=== PATIENT | female | born 1950 | race Caucasian/White ===

== ENCOUNTER → 2016-07-02 | Outpatient (CLI) | payer BC ==
[2016-07-02 09:11] LABS: ALT 33 U/L (9-52); AST 24 U/L (14-36); Alkaline Phosphatase 64 U/L (38-126); Anion Gap 8 mmol/L; Blood Urea Nitrogen 17 mg/dL (7-17); Calcium 9.6 mg/dL (8.4-10.2); Carbon Dioxide 28 mmol/L (22-30); Chloride 104 mmol/L (98-107); Cholesterol 209 mg/dL (<200); Glucose 92 mg/dL (74-99); HDL Cholesterol 75 mg/dL (40-60); Non-African American GFR(MDRD) >60 (>60 ml/min/1.73 sqM); Potassium 4.3 mmol/L (3.5-5.1); Sodium 140 mmol/L (137-145); Total Bilirubin 0.7 mg/dL (0.2-1.3); Total Protein 7.1 g/dL (6.3-8.2); Triglycerides 178 mg/dL (<150)
[2016-07-02 14:03] LABS: Hemoglobin A1C 5.8 % (4.2-6.1)
== END | disposition home or self-care (01) ==
LOC: LABWHC1 08:08
PROVIDERS: ATTEND Internal Medicine Endocrinology, Diabetes & Metabolism
DX: E78.5 Hyperlipidemia, unspecified (principal); E55.9 Vitamin D deficiency, unspecified; E03.9 Hypothyroidism, unspecified
CPT/HCPCS: 36415; 80053; 80061; 82306; 83036; 84439; 84443

== ENCOUNTER → 2018-02-14 | Outpatient (CLI) | payer BC ==
[2018-02-14 11:07] LABS: Basophils # (A) 0.1 k/uL (0-0.2); Basophils % (A) 1 %; Eosinophils # (A) 0.3 k/uL (0-0.7); Eosinophils % (A) 4 %; Lymphocytes # (A) 1.4 k/uL (1.0-4.8); Lymphocytes % (A) 22 %; MCH 30.1 pg (25.0-35.0); MCHC 32.7 g/dL (31.0-37.0); MCV 92.2 fL (80.0-100.0); Monocytes # (A) 0.4 k/uL (0-1.0); Monocytes % (A) 6 %; Neutrophils # (A) 4.3 k/uL (1.3-7.7); Neutrophils % (A) 66 %; Platelet Count 202 k/uL (150-450); RBC 5.32 m/uL (3.80-5.40); RDW 13.8 % (11.5-15.5); WBC 6.5 k/uL (3.8-10.6)
[2018-02-14 16:59] LABS: Albumin 4.5 g/dL (3.80-4.90); Albumin/Globulin Ratio 2.65 (1.20-2.10); Anion Gap 8.1 mmol/L (4.00-12.00); Calcium 9.4 mg/dL (8.7-10.3); Carbon Dioxide 26.9 mmol/L (21.6-31.8); Globulin 1.7 g/dL (2.1-3.7); LDL Cholesterol,Calculated 129.4 mg/dL (0.0-131.0); Potassium 4.2 mmol/L (3.5-5.5); Total Bilirubin 0.4 mg/dL (0.2-1.2); Total Protein 6.2 g/dL (6.2-8.2); VLDL Calculation 28.6 mg/dL (5.00-40.00)
[2018-02-14 17:06] LABS: T4, Free (Free Thyroxine) 1.2 ng/dL (0.80-1.80)
[2018-02-14 19:48] LABS: Hemoglobin A1C 5.9 % (4.0-6.0)
== END | disposition home or self-care (01) ==
LOC: LABWHC1 10:17
PROVIDERS: ATTEND Internal Medicine Endocrinology, Diabetes & Metabolism
DX: E78.5 Hyperlipidemia, unspecified (principal); E55.9 Vitamin D deficiency, unspecified; E03.9 Hypothyroidism, unspecified; N95.1 Menopausal and female climacteric states; M89.9 Disorder of bone, unspecified; I10 Essential (primary) hypertension
CPT/HCPCS: 36415; 80053; 80061; 82306; 83036; 84439; 84443; 85025

== ENCOUNTER 2023-04-10 08:00 | Day surgery (SDC) | payer BC ==
[2023-04-04 14:43] VITALS: BMI 26.2
[~2023-04-10 08:00] MED LIST: ALPRAZolam 0.25 MG TAB PO PRN; ALPRAZolam 0.5 MG TAB PO PRN; ASPIRIN 325 MG TAB PO STA; HEPARIN SODIUM,PORCINE (1 ML) 2,500 UNIT in SODIUM CHLORIDE 0.9% 250 ML IRRIGATION PRN; HEPARIN SODIUM,PORCINE 10,000 UNIT in SODIUM CHLORIDE 0.9% 1,000 ML IRRIGATION PRN; NITROGLYCERIN SL TABS 0.4 MG TAB SUBLINGUAL PRN
[2023-04-10] MEDS: SODIUM CHLORIDE 0.9% 1,000 ML in EMPTY BAG 1 BAG IV SCH (08:22)
[2023-04-10 08:39] VITALS: RESP 18; TEMP 97.7
[2023-04-10] MEDS ORDERED: fentaNYL (PF) 50 MCG/ML 2 ML AMP ONE (09:04)
[2023-04-10] MEDS: IV FLUID CONTINUATION 1,000 ML IV ONE (09:12)
[2023-04-10] MEDS: BENZOCAINE SPRAY 1 CAN MUCOUS MEM ONE (09:12)
[2023-04-10] MEDS: MIDAZOLAM 2 MG/2 ML VIAL IVP ONE ×4 (09:14→10:42)
[2023-04-10] MEDS: fentaNYL (PF) 50 MCG/ML 2 ML AMP IVP ONE (09:14)
--- NOTE | 2023-04-10 10:03 | P.TEE ---
Date of Procedure: 04/10/23 Description of Procedure(s): Procedure performed: 1. Transesophageal Echocardiogram with color flow doppler, pulsed wave doppler and continuous wave doppler 2. Moderate conscious sedation. Sedation time 18 mins. Indications: Concerns of LVOT obstruction, (dynamic) and mitral regurgitation evaluation. Consent: I have discussed the risks, benefits and alternative therapies for the above-mentioned procedure. The patient has indicated understanding and acceptance of the risks of the procedure. Signed consent was obtained and was placed in the paper chart. Procedural Steps: Timeout was performed in usual fashion. Patient's heart rate, blood pressure, oxygen saturation and ECG were monitored. Benzocaine was sprayed liberally in the back of the throat. Bite block was placed between the jaw. [1] mg of Versed and [50] mcg of Fentanyl were administered intravenously. After achieving appropriate moderate conscious sedation, CHAPINCITO probe was advanced without difficulty and without any immediate complications to the esophagus. CHAPINCITO study was performed with color flow doppler, pulsed wave doppler and continuous wave doppler. The probe was then removed. Patient tolerated the procedure well. Patient was transferred to the post procedure area in stable and satisfactory condition. Throughout the procedure patient's heart rate, blood pressure, oxygen saturation and ECG were monitored. CHAPINCITO procedure was limited because patient was uncomfortable during the procedure and was biting on the CHAPINCITO probe. Total sedation time 18 mins. Complications: none FINDINGS Left Atrium: Normal Left atrial size. No evidence of mass or thrombus seen Left Atrial Appendage: No evidence of thrombus or mass seen in EMEKA Inter atrial septum: Intact inter-atrial septum with no evidence of atrial septal defect or patent foramen ovale by color Doppler. Left Ventricle: Normal global LV size and systolic function. Moderate to severe concentric LVH Right Atrium: Normal overall RV size Right Ventricle: Normal global RV size and systolic function Aortic Valve: Trileaflet, mild calcific degeneration of aortic valve with no evidence of stenosis or regurgitation. Moderately increased LVOT gradients. Mitral Valve: Mild cordal systolic anterior motion of anterior mitral leaflet. Moderate posterior mitral leaflet calcific degeneration with restriction. Posteriorly directed eccentric mitral regurgitation moderate to severe. Pisa could not be obtained because of contaminated Doppler signal from increased LVOT velocities. Pulmonic Valve: Not well visualized. Tricuspid Valve: Structurally normal. Ascending aorta, Aortic root and Aortic arch: Normal size aortic root and ascending aorta. Ascending aorta measured at 3.7 cm. mild intimal thickening. No evidence of large atheroma or bulky calcification Small pericardial effusion in transverse sinus CONCLUSION: Moderately increased LVOT gradients Mild caudal systolic anterior motion of mitral leaflet. Calcific degeneration of posterior mitral leaflet with restriction causing moderate to severe eccentric mitral regurgitation, posteriorly directed. Moderate to severe concentric LVH Small transverse sinus pericardial effusion May consider LVOT gradient provocation study with valsalva and low dose dobutamine. Karson Taylor MD, RPVI, FACC Thank you for allowing [facility] to participate in this patient's care. Feel free to reach out in case of any followup questions.
[2023-04-10] MEDS ORDERED: LIDOCAINE 1% INJ 10MG/ML (20 ML MDV) ONE (10:04)
[2023-04-10] MEDS ORDERED: HEPARIN SODIUM 1,000 UN/ML (10ML VL) ONE (10:04)
[2023-04-10] MEDS ORDERED: VERAPAMIL 2.5 MG/ML 2 ML AMP ONE (10:04)
[2023-04-10] MEDS: VERAPAMIL SYRINGE (5 MG/10 ML) INTRAARTER ONE ×2 (10:35→10:55)
[2023-04-10] MEDS: LIDOCAINE 1% INJ 10MG/ML (20 ML MDV) SQ ONE (10:42)
[2023-04-10] MEDS: HEPARIN SODIUM 1,000 UN/ML (10ML VL) IVP ONE (10:55)
[2023-04-10 10:57] LABS: O2 Sat Blood Gas 70.3 %
[2023-04-10 10:59] LABS: O2 Sat Blood Gas 70.3 %
[2023-04-10 11:02] LABS: O2 Sat Blood Gas 91.5 %
[2023-04-10] MEDS: IOPAMIDOL-370 100ML BTL INJ ONE ×2 (11:12→11:14)
[2023-04-10] MEDS ORDERED: SODIUM CHLORIDE 0.9% 1,000 ML IV SCH (11:30)
--- NOTE | 2023-04-10 13:07 | CC ---
CARDIAC CATHETERIZATION REPORT PROCEDURES PERFORMED: Right and left heart catheterization and coronary angiography. PERFORMED BY: Dr. Ge Herrera. ANESTHESIA: Moderate conscious sedation time was 48 minutes. Patient was administered Versed. Oxygen saturation, hemodynamics, and EKG were monitored closely. CLINICAL INFORMATION: Mrs. Nicolle Richards is a 72-year-old lady with a known history of hypertension, hyperlipidemia, mitral regurgitation, moderate degree. She has been following with me for several years and recently she is having more shortness of breath and fatigue and on the echo there is moderate regurgitation, slightly worse than before, but there is also what seems to be hypertrophic cardiomyopathy with outflow tract gradient and a chordal ATIF. She has calcified posterior mitral leaflet. I performed a Lexiscan stress test, which revealed inferolateral reversible defect with preserved systolic function. There was no gradient across the aortic valve. Given this, she was advised cardiac cath and transesophageal echo. Transesophageal echo revealed that there was moderate LVOT obstruction. On the transthoracic echo, the gradient was nearly 45 mmHg. There was calcification of posterior mitral leaflet with [id number] mitral regurgitation, but no prolapse. There was also no PFO or thrombus. I advised right and left heart catheterization. The patient already had a right brachial venous access. PROCEDURE NOTE: Under strict aseptic precautions and local anesthesia, a 6-Kazakh introducer was placed in the right radial artery. I used a 6-Kazakh introducer with a micropuncture wire and gained access through the venous cannula that was already in the brachial vein. Right heart catheterization was performed with a 6-Kazakh balloon tipped catheter. Hemodynamics and saturations were obtained. I did a thermodilution cardiac output. I then performed coronary angiography and also checked LV pressures. Using end hole right Rita catheter, I checked pressures at the LV apex and LV outflow. I also performed coronary angiography with the same right catheter and then used a JL3.5 catheter for the left coronary system. The sheath was taken out, and TR band applied as per protocol with saturation the fingers of the right hand of 95%. Brachial sheath will be removed in the extended stay unit. Patient tolerated the procedure well without complications. CARDIAC CATHETERIZATION FINDINGS: The right atrial pressure was 4 mmHg. Right ventricular pressure was 34/4. Pulmonary artery pressure was 34/9 with mean of 13 and a wedge pressure was 10 mmHg. The left ventricular end-diastolic pressure was about 12-13 mmHg without any gradient across aortic valve. Between the LV apex and LV outflow tract, there is a 35 mm gradient recorded using a Coker catheter. The femoral arterial saturation was about 92% and pulmonary artery saturation was 70%. The thermodilution cardiac output and Zack cardiac output were both about 5 L. There is no shunt. CORONARY ANGIOGRAPHY FINDINGS: Right Coronary Artery: Nondominant vessel, proximal 80% stenosis, gives off a conus branch and small branches distally. No other significant disease. Proximal 80% stenosis. Nondominant RCA. Left Main Coronary Artery: No significant disease. Bifurcates into LAD and circumflex. Left main is short. Left Anterior Descending Coronary Artery: Good caliber vessel extends along the antral wall, gives off 2 small septal branches, then there is a proximal narrowing of about 80% or so after which the caliber improves, and the vessel continues and gives off septal and diagonal branches, runs all the way to the apex and curves over the apex to supply the inferoapical portion of left ventricle. LAD is therefore large, has a proximal 85% stenosis. Left Posterior Circumflex Coronary Artery: This is a dominant vessel, proximal 80% stenosis, gives off a small first obtuse marginal. No significant disease. Distally bifurcates into PDA and PLV, both of which supply large amount of myocardium. No significant disease in the distal branches of circumflex. Circumflex proximally has therefore 85% stenosis and a dominant vessel. Left ventriculogram was not performed. FINAL IMPRESSION: This patient has a left dominant system, 85% proximal circumflex and proximal LAD, also has a nondominant RCA about 80% to 90% stenosis. The gradient between the LV apex and outflow tract is 35 mmHg. The patient does not have significant pulmonary hypertension. There is no shunt. There was no gradient across the aortic valve and LV end-diastolic pressure was 12 mmHg. RECOMMENDATIONS: The patient has complex issues. I am recommending evaluation by Cardiac surgery for possible bypass surgery and may require a mitral valve repair or at least a ring for the mitral valve. Regarding hypertrophic cardiomyopathy at this time, no surgical intervention is advised because it seems to be more of a concentric hypertrophy. However, I will await input from cardiac surgery as well. Discussed with the patient and family. She will be discharged later on today on beta blockers, antihypertensives, aspirin, and statins. MMODL / IJN: [id number] /
[2023-04-10] MEDS ORDERED: ASPIRIN 81 MG PO PRN (13:41)
--- NOTE | 2023-04-10 15:29 | P.GSCN ---
History of Present Illness Consult date: 04/10/23 Reason for Consult: CAD, mitral regurgitation Requesting physician: Sukhdev Herrera History of present illness: This is a 72 year old female who follows outpatient with Dr. Acharya for primary care and Dr. Herrera for cardiology. She has a previous medical history of hypertension, hyperlipidemia, mitral regurgitation with hypertrophic obstructive cardiomyopathy, hypothyroid and previous tobacco dependence. The has been experiencing increased shortness of breath limiting her from her usual functions. She had a stress test by Dr. Herrera which revealed inferior wall reversible defect with preserved ejection fraction. Given these findings she was recommended to undergo heart catheterization and transesophageal echocardiogram which were completed today. CHAPINCITO demonstrated moderate increased left ventricular outflow tract gradient, mild chordal ATIF, moderate to severe posteriorly directed eccentric mitral regurgitation, moderate to severe concentric left ventricular hypertrophy. Heart catheterization revealed proximal RCA stenosis 80%, proximal LAD stenosis 85%, and dominant proximal circumflex stenosis 85%. Due to these findings consultation was placed to Dr. Gonzales for surgical recommendations. Review of Systems Review of systems was completed and was negative except as noted - Cardiovascular Reports as per HPI, Reports dyspnea on exertion, Reports shortness of breath Past Medical History Past Medical History: Hyperlipidemia, Hypertension, Thyroid Disorder Additional Past Medical History / Comment(s): HAD CHANGES IN STRESS TEST SINCE LAST YEAR. RT CATARACT. Mitral regurgitation History of Any Multi-Drug Resistant Organisms: None Reported Past Surgical History: Breast Surgery, Hysterectomy Additional Past Surgical History / Comment(s): HOLE IN RT EYE REPAIRED 3 YRS AGO AT [place]. BREAST REDUCTION 2009 Past Anesthesia/Blood Transfusion Reactions: Postoperative Nausea & Vomiting (PONV) Past Psychological History: No Psychological Hx Reported Smoking Status: Former smoker Past Alcohol Use History: None Reported Past Drug Use History: None Reported - Past Family History Mother Family Medical History: No Reported History Medications and Allergies Home Medications Medication Instructions Recorded Confirmed Type Aspirin EC [Ecotrin Low Dose] 81 mg PO DAILY PRN 04/04/23 04/10/23 History Ergocalciferol [Vitamin D2 (1250 1,250 mcg PO SA 04/04/23 04/10/23 History Mcg = 81520 Iu)] Levothyroxine Sodium [Synthroid] 100 mcg PO DAILY 04/04/23 04/10/23 History Atorvastatin [Lipitor] 80 mg PO DAILY #0 tab 04/10/23 Rx Losartan [Cozaar] 50 mg PO HS #0 tab 04/10/23 Rx Metoprolol Tartrate [Lopressor] 25 mg PO BID #0 tab 04/10/23 Rx Allergies Allergy/AdvReac Type Severity Reaction Status Date / Time No Known Allergies Allergy Verified 04/10/23 08:14 Surgical - Exam Vital Signs Temp Pulse Resp BP Pulse Ox 97.7 F 88 18 127/65 96 04/10/23 08:21 04/10/23 08:21 04/10/23 08:21 04/10/23 08:21 04/10/23 08:21 CONSTITUTIONAL: Awake and alert, appears comfortable, cooperative, well- developed, well-nourished, no pain, no acute distress EYES: Pupils equal, round, reactive to light, normal ocular movement ENT: Moist mucous membranes without oral lesions present NECK: No masses, no bruits, trachea midline RESPIRATORY: Lungs sounds clear to auscultation bilaterally. Respirations even, nonlabored. Currently on room air with oxygen saturation 100%. Strong cough. No chest wall deformities. No clubbing or cyanosis present CARDIOVASCULAR: S1, S2 present, systolic murmur present. Regular rate and rhythm, sinus rhythm on telemetry. Palpable peripheral pulses bilaterally. No edema present. No calf pain or tenderness noted GASTROINTESTINAL: Abdomen soft, nontender, nondistended without masses or organomegaly noted. There is no rebound or guarding present. Active bowel sounds present 4 quadrants. GENITOURINARY: Deferred INTEGUMENTARY: Skin is warm and dry with evidence of good perfusion. NEUROLOGIC: Cranial nerves II through XII intact, normal coordination, no obvious motor or sensory deficits, speech is normal MUSKULOSKELETAL: Able to move all extremities, strength equal bilaterally, normal posture PSYCHIATRIC: Alert and oriented to person place and time, appropriate affect, intact judgment and insight Results - Imaging Additional studies: Heart catheterization and transesophageal echocardiogram films were reviewed with Dr. Gonzales Assessment and Plan Assessment: Triple-vessel coronary artery disease Increased left ventricular outflow tract gradient Mild chordal ATIF, moderate to severe posteriorly directed eccentric mitral regurgitation Moderate to severe concentric left ventricular hypertrophy Hypertension Hyperlipidemia Hypertrophic obstructive cardiomyopathy Hypothyroid Previous tobacco dependence ADDENDUM: Patient seen and examined. MR only moderate/ CAD amenable to PTCA. Discussed with patient and son. Options of MVR/CABG vs PTCA discussed at length. She would prefer PTCA at this time, understanding if remains symptomatic, might still require OHS for Mitral valve replacement. Discussed with Dr Herrera. [facility] Plan: The patient was seen and examined with Dr. Gonzales in the Extended Stay unit. Chart/diagnostics reviewed. The case was discussed between Dr. Gonzales and Dr. Herrera. Our recommendations are for percutaneous intervention to her coronary arteries, beta-blockade for hokum. After that repeat echocardiogram for reevaluation, possible mitral valve replacement down the line but likely would be high risk. This was discussed in detail between Dr. Gonzales and Dr. Herrera, as well is with the patient and her son. All questions were answered. Continue medical therapy per Dr. Herrera. May refer back to us in the future. Thank you Dr. Herrera for this consult. Please call us with any further questions. I have personally seen and examined the patient, performed the documentation and the assessment and plan as written. Number of minutes spent on the visit: 30. Jacqueline Neumann, JOSEF-C
[2023-04-10 16:13] VITALS: BP 148/70; PULSE 76
[2023-04-10] MEDS ORDERED: LOSARTAN 50 MG TAB PO SCH (21:00)
[2023-04-10] MEDS ORDERED: METOPROLOL TARTRATE 25 MG TAB PO SCH (21:00)
[2023-04-11] MEDS ORDERED: LEVOTHYROXINE 100 MCG TAB PO SCH (06:30)
[2023-04-11] MEDS ORDERED: ATORVASTATIN 80 MG TAB PO SCH (09:00)
[2023-04-13] MEDS ORDERED: ERGOCALCIFEROL 1,250 MCG (50,000 IU) CAPSULE PO SCH (09:00)
== END 2023-04-10 15:40 | disposition home or self-care (01) ==
LOC: CATHCVL 08:00
PROVIDERS: ATTEND Internal Medicine Interventional Cardiology
DX: I34.0 Nonrheumatic mitral (valve) insufficiency (principal); E78.5 Hyperlipidemia, unspecified; E03.9 Hypothyroidism, unspecified; I10 Essential (primary) hypertension; I25.10 Atherosclerotic heart disease of native coronary artery without angina pectoris; I42.1 Obstructive hypertrophic cardiomyopathy; I34.81 Nonrheumatic mitral (valve) annulus calcification; Z79.890 Hormone replacement therapy; Z79.899 Other long term (current) drug therapy; Z87.891 Personal history of nicotine dependence
CPT/HCPCS: 93312; 93320; 93325; 93460; 85018; 82810; 99152; 99153 ×2; C1769; C1894; C1751; J2250; J2001; J3010; J1644; Q9967

== ENCOUNTER 2023-04-18 08:13 | Day surgery (SDC) | payer BC ==
[~2023-04-18 08:13] MED LIST changes: -ALPRAZolam 0.25 MG TAB PO PRN; -ASPIRIN 325 MG TAB PO STA; -HEPARIN SODIUM,PORCINE (1 ML) 2,500 UNIT in SODIUM CHLORIDE 0.9% 250 ML IRRIGATION PRN; -HEPARIN SODIUM,PORCINE 10,000 UNIT in SODIUM CHLORIDE 0.9% 1,000 ML IRRIGATION PRN
[2023-04-18] MEDS: SODIUM CHLORIDE 0.9% 1,000 ML in EMPTY BAG 1 BAG IV SCH (08:40)
[2023-04-18] MEDS ORDERED: LIDOCAINE 1% INJ 10MG/ML (20 ML MDV) ONE (10:30)
[2023-04-18] MEDS ORDERED: HEPARIN SODIUM 1,000 UN/ML (10ML VL) ONE (10:31)
[2023-04-18] MEDS ORDERED: VERAPAMIL 2.5 MG/ML 2 ML AMP ONE (10:31)
[2023-04-18] MEDS: MIDAZOLAM 2 MG/2 ML VIAL IVP ONE (10:35)
[2023-04-18] MEDS: fentaNYL (PF) 50 MCG/ML 2 ML AMP IVP ONE (10:39)
[2023-04-18] MEDS: LIDOCAINE 1% INJ 10MG/ML (20 ML MDV) SQ ONE (10:40)
[2023-04-18] MEDS ORDERED: fentaNYL (PF) 50 MCG/ML 2 ML AMP ONE (10:40)
[2023-04-18] MEDS: VERAPAMIL SYRINGE (5 MG/10 ML) INTRAARTER ONE (10:45)
[2023-04-18] MEDS: NITROGLYCERIN 1000MCG/10ML SYRINGE INTRACORON ONE (11:14)
[2023-04-18] MEDS: IOPAMIDOL-370 100ML BTL INJ ONE ×2 (11:16→11:44)
[2023-04-18] MEDS ORDERED: TICAGRELOR 90 MG TAB ONE (11:18)
[2023-04-18] MEDS: TICAGRELOR 90 MG TAB PO ONE (11:24)
[2023-04-18] MEDS: NITROGLYCERIN SL TABS 0.4 MG TAB SUBLINGUAL ONE (11:25)
[2023-04-18] MEDS ORDERED: NITROGLYCERIN SL TABS 0.4 MG TAB SUBLINGUAL ONE (11:27)
[2023-04-18] MEDS: SODIUM CHLORIDE 0.9% 1,000 ML IV ONE (11:31)
--- NOTE | 2023-04-18 12:27 | P.CARDCATH ---
Date of Procedure: 04/18/23 Description of Procedure: Clinical Information: This is a 72-year-old lady with a known history of hypertension hyperlipidemia and recently has been having increasing shortness of breath. She is a smoker for the last 35 years or more. She was recently having more shortness of breath and echo revealed what appeared to be a hypertrophic cardiomyopathy with a resting outflow gradient of nearly 35 mmHg. She also had a calcified mitral valve with a central regurgitation probably with some degenerative change without prolapse. In view of an abnormal stress test and increasing symptoms of shortness of breath she underwent a transesophageal echo and coronary angiography on the seventh of this month. Study revealed that the was a moderate LVOT obstruction on transesophageal echo not well quantified but moderate to severe mitral regurgitation with calcification and degenerative changes of posterior mitral leaflet. There was no shunt and no thrombus. Coronary angiogram revealed 80 to 90% proximal circumflex and proximal LAD stenosis. LAD stenosis was located after a small septal and diagonal branch. Right was nondominant with 85% mid lesion. She was initially evaluated by cardiac surgery and Dr. Gonzales felt that she is better off to have percutaneous coronary intervention and treat her valvular disease medically. I saw the patient on the eighth of this month reviewed with the patient and son the rationale risks benefits and options. She understood all details and wished to proceed with the procedure. She was advised PCI of LAD and circumflex from right radial approach. Procedure: #1 PTCA and stenting of proximal LAD and proximal circumflex with a drug-eluting stent. #2 intravascular ultrasound of proximal LAD and proximal circumflex to ensure good stent expansion and apposition. Under strict aseptic precautions and local anesthesia a 6 Bhutanese introducer was placed in the right radial artery. I used a JL 3.5 guide catheter to cannulate the left coronary artery. A run-through wire was used to cross the lesion in the LAD wire was Distally. A 12 mm long 3.0 caliber NC trek balloon was used to predilate the lesion. Patient received 4500 units of heparin. Her ACT was about 315. She weighs about 69 kg. Following the predilatation I used a 12 mm long 3.5 caliber Xience stent and this was deployed at 14 destiny. A good angiographic result was achieved patient had mild chest discomfort and precordial ST elevation. I performed intravascular ultrasound and noted that the stent was somewhat underexpanded in the distal half. I went with a 3.75 caliber NC trek balloon and postdilated at 14 destiny. Subsequently I performed an IVUS again and noted that the stent was fully expanded well opposed with excellent angiographic result as well. I then turned my attention to the circumflex. The same wire was used to cross the lesion in the circumflex and was kept in the groove branch. I advanced a 3.25 caliber 8 mm long NC trek balloon and predilated the lesion. The best view was KITTITIAN caudal view. In this view I noted that the length of the lesion was no more than 6 to 7 mm and there was a branch obtuse marginal that was coming just after the lesion and the landing zone was somewhat limited. I therefore used a 8 mm long 4.0 caliber Xience stent and deployed this at 14 destiny. I performed intravascular ultrasound noted that the stent was well-expanded but not completely opposed. It appeared that the reference lesion was almost 4.75. I therefore used a 4.5 NC trek balloon and try to advance it. I had some difficulty I used a ronda wire with a whisper straight wire. With this combination I was able to advance the 4.5 caliber 8 mm long NC trek balloon and postdilated at 14 destiny. Excellent angiographic result as well as IVUS result was noted. The wires and catheter was taken out. TR band applied as per protocol with saturation the fingers of the right hand of about 98%. Moderate conscious sedation time was 93 minutes. Patient was administered Versed and fentanyl. Excellent angiographic result without complication was achieved. Findings were discussed with the patient as well as her sister and son. I expect she will be discharged tomorrow. She will be on aspirin and Brilinta combination without interruption for 1 year. She received 180 mg of Brilinta and aspirin this morning. She also received intravenous heparin but ACT was 315. She if she remains stable she will be discharged in the morning. Guide Catheter: 3.5 left Rita guide catheter 6 Bhutanese caliber Wire: Run-through wire Balloon: Stent: 3.5 caliber 12 mm Xience stent postdilated with a 3.75 caliber NC trek balloon in the LAD. In the circumflex I used a 4.0 caliber 8 mm Xience stent postdilated with a 4.5 caliber NC trek balloon of 8 mm length. Recommendations: Advised dual antiplatelet therapy for one year unless some contraindication develops down the road. Discuss with patient and family regarding details of the procedure and recommendations.
[2023-04-18] MEDS: ACETAMINOPHEN TAB 325 MG TAB PO PRN (15:56)
[2023-04-18] MEDS: ASPIRIN 325 MG TAB PO ONE (16:57)
[2023-04-18] MEDS: SODIUM CHLORIDE 0.9% 1,000 ML IV SCH (16:58)
[2023-04-18] MEDS: METOPROLOL TARTRATE 25 MG TAB PO SCH (20:36)
[2023-04-18] MEDS: ALPRAZolam 0.25 MG TAB PO PRN (23:21)
[2023-04-19] MEDS: LEVOTHYROXINE 100 MCG TAB PO SCH (05:55)
[2023-04-19 06:45] LABS: Basophils # (A) 0.1 k/uL (0-0.2); Basophils % (A) 1 %; Eosinophils # (A) 0.3 k/uL (0-0.7); Eosinophils % (A) 6 %; HCT 39.5 % (34.0-46.0); HGB 13.2 gm/dL (11.4-16.0); Lymphocytes # (A) 1.1 k/uL (1.0-4.8); Lymphocytes % (A) 21 %; MCH 30.9 pg (25.0-35.0); MCHC 33.4 g/dL (31.0-37.0); MCV 92.4 fL (80.0-100.0); Mean Platelet Volume 8.4; Monocytes # (A) 0.4 k/uL (0-1.0); Monocytes % (A) 7 %; Neutrophils # (A) 3.4 k/uL (1.3-7.7); Neutrophils % (A) 63 %; Platelet Count 172 k/uL (150-450); RBC 4.28 m/uL (3.80-5.40); RDW 13.5 % (11.5-15.5); WBC 5.3 k/uL (3.8-10.6)
[2023-04-19 06:55] LABS: African American GFR (CKD) >90 (>60 ml/min/1.73 sqM); Anion Gap 1 mmol/L; Blood Urea Nitrogen 10 mg/dL (7-17); Calcium 8.6 mg/dL (8.4-10.2); Carbon Dioxide 28 mmol/L (22-30); Chloride 109 mmol/L (98-107); Glucose 93 mg/dL (74-99); Non-African American GFR(CKD) >90 (>60 ml/min/1.73 sqM); Potassium 3.9 mmol/L (3.5-5.1); Sodium 138 mmol/L (137-145)
[2023-04-19 08:11] VITALS: BP 156/71; PULSE 65; RESP 14; TEMP 98
[2023-04-19] MEDS ORDERED: FUROSEMIDE 20 MG TAB PO SCH (09:00)
[2023-04-19] MEDS ORDERED: TICAGRELOR 90 MG TAB PO SCH (09:00)
[2023-04-19] MEDS ORDERED: ASPIRIN 81 MG PO SCH (09:00)
[2023-04-19] MEDS ORDERED: ATORVASTATIN 80 MG TAB PO SCH (09:00)
[2023-04-19] MEDS ORDERED: LOSARTAN-HCTZ 50-12.5 MG 1 EACH TAB PO SCH (09:00)
[2023-04-19] MEDS ORDERED: METOPROLOL TARTRATE 50 MG TAB PO SCH (09:00)
--- NOTE | 2023-04-19 09:13 | DS ---
DISCHARGE SUMMARY DIAGNOSES: 1. Unstable angina. 2. Hypertrophic cardiomyopathy. 3. Moderate to severe mitral regurgitation, degenerative. 4. Hypertension. 5. Hyperlipidemia. This patient who had a cardiac cath on the 10 of April, which revealed a significant proximal LAD and circumflex disease as well as a mid/proximal RCA, which is a nondominant vessel. She has moderate to severe calcific mitral valve leaflets with regurgitation and also a hypertrophic cardiomyopathy with a resting outflow gradient of 35 mmHg. She was seen by Cardiac Surgery, advised PCI of coronaries and valves, and HOCM will be addressed later. She was therefore brought in for an elective PCI yesterday. From right radial approach, I performed PCI of LAD as well as circumflex, 2 drug-eluting stents were placed. Excellent angiographic result was achieved. Postprocedure course was uneventful. Right radial site is clean and dry with a good pulse. Vital signs are stable. No JVD. S1, S2 heard normally. Short systolic murmur audible at left lower sternal border. Lungs are clear. Abdomen and lower extremity exam are unremarkable. Right radial pulse is good. The patient will be discharged today on Brilinta 90 mg b.i.d. and aspirin 81 mg daily, along with beta blockers and losartan and also sublingual nitroglycerin p.r.n. All prescriptions were given. Discharge instructions were given. Labs and EKG are unremarkable. She will be discharged today and see me in the office on Saturday. The patient is stable at the time of discharge. MMODL / IJN: [id number] /
[2023-04-20] MEDS ORDERED: ERGOCALCIFEROL 1,250 MCG (50,000 IU) CAPSULE PO SCH (09:00)
== END 2023-04-19 09:58 | disposition home or self-care (01) ==
LOC: CATHCVL 08:13 → 6NMEDSUR 14:08 → CATHCVL 04-19 09:58
PROVIDERS: ATTEND Internal Medicine Interventional Cardiology
DX: I25.10 Atherosclerotic heart disease of native coronary artery without angina pectoris (principal); I10 Essential (primary) hypertension; E78.5 Hyperlipidemia, unspecified; I42.2 Other hypertrophic cardiomyopathy; F17.210 Nicotine dependence, cigarettes, uncomplicated; E03.9 Hypothyroidism, unspecified; I05.1 Rheumatic mitral insufficiency; Z79.890 Hormone replacement therapy; Z79.82 Long term (current) use of aspirin; Z79.899 Other long term (current) drug therapy
CPT/HCPCS: 92978; 92979; 80048; 85025; C9600; C1769 ×3; C1887; C1894; C1753; C1874 ×2; C1725 ×4; J2250; J2001; J3010; J1644; Q9967; J2305

== ENCOUNTER 2023-04-23 15:48 | Emergency (ER) | payer BC ==
--- NOTE | 2023-04-23 16:20 | ED ---
General Adult HPI - General Chief complaint: Nausea/Vomiting/Diarrhea Stated complaint: Nausea Time Seen by Provider: 04/23/23 15:54 Source: patient, family, RN notes reviewed Mode of arrival: ambulatory Limitations: no limitations - History of Present Illness Initial comments: Patient is a pleasant 72-year-old female present to the emergency department with concerns for nausea. Patient did have stent placement done last week. Patient was feeling fine afterwards. Starting Saturday patient started not feeling well. Patient has been fatigued. Patient has had nausea and decreased appetite. No vomiting. No chest pain. No dyspnea. No abdominal pain. Patient has been extremely fatigued and slept most of the day yesterday. Patient did have fever 101 on Saturday. No fever since that time. Patient did speak with Dr. Herrera and was advised to come to emergency department. - Related Data Home Medications Medication Instructions Recorded Confirmed Aspirin EC [Ecotrin Low Dose] 81 mg PO DAILY 04/04/23 04/23/23 Ergocalciferol [Vitamin D2 (1250 1,250 mcg PO SA 04/04/23 04/23/23 Mcg = 18810 Iu)] Levothyroxine Sodium [Synthroid] 100 mcg PO DAILY 04/04/23 04/23/23 Furosemide [Lasix] 20 mg PO DAILY 04/15/23 04/23/23 Losartan-Hctz 50-12.5 mg [Hyzaar 1 tab PO DAILY 04/15/23 04/23/23 50-12.5] Fexofenadine/Pseudoephedrine 1 tab PO DAILY PRN 04/23/23 04/23/23 [Naheed-D 24 Hour Tablet] Nitroglycerin Sl Tabs [Nitrostat] 0.4 mg SUBLINGUAL Q5M PRN 04/23/23 04/23/23 Ticagrelor [Brilinta] 90 mg PO BID 04/23/23 04/23/23 Previous Rx's Medication Instructions Recorded Atorvastatin [Lipitor] 80 mg PO DAILY #0 tab 04/10/23 Metoprolol Tartrate [Lopressor] 25 mg PO BID #0 tab 04/10/23 Ondansetron Odt [Zofran Odt] 4 mg PO Q8HR PRN #10 tab 04/23/23 Allergies Allergy/AdvReac Type Severity Reaction Status Date / Time No Known Allergies Allergy Verified 04/23/23 17:31 Review of Systems ROS Statement: Those systems with pertinent positive or pertinent negative responses have been documented in the HPI. ROS Other: All systems not noted in ROS Statement are negative. Constitutional: Reports: as per HPI, fever Eyes: Denies: eye pain ENT: Reports: congestion (Very mild). Denies: ear pain Respiratory: Denies: dyspnea Cardiovascular: Denies: chest pain, palpitations Endocrine: Reports: fatigue Gastrointestinal: Reports: nausea. Denies: abdominal pain, vomiting Genitourinary: Denies: dysuria Musculoskeletal: Denies: back pain Skin: Denies: rash Neurological: Denies: weakness Past Medical History Past Medical History: Coronary Artery Disease (CAD), Hyperlipidemia, Hypertension, Thyroid Disorder Additional Past Medical History / Comment(s): HAD CHANGES IN STRESS TEST SINCE LAST Year. Mitral regurgitation. 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 BREAST REDUCTION 2009 Past Anesthesia/Blood Transfusion Reactions: No Reported Reaction, Postoperative Nausea & Vomiting (PONV) Past Psychological History: No Psychological Hx Reported Smoking Status: Former smoker Past Alcohol Use History: None Reported Past Drug Use History: None Reported - Past Family History Mother Family Medical History: No Reported History General Exam Limitations: no limitations General appearance: alert, in no apparent distress Head exam: Present: normocephalic Eye exam: Present: normal appearance, PERRL Neck exam: Present: normal inspection Respiratory exam: Present: normal lung sounds bilaterally Cardiovascular Exam: Present: regular rate, normal rhythm Expanded Peripheral pulses: 2+: Radial (R), Radial (L), Dorsalis Pedis (R), Dorsalis Pedis (L) GI/Abdominal exam: Present: soft. Absent: tenderness Extremities exam: Present: normal inspection. Absent: pedal edema, calf tenderness Neurological exam: Present: alert. Absent: motor sensory deficit Psychiatric exam: Present: normal affect, normal mood Skin exam: Present: normal color Course Vital Signs 04/23/23 04/23/23 04/23/23 16:00 16:13 16:20 Temperature 96 F L Pulse Rate 100 98 95 Respiratory 16 35 H 16 Rate Blood Pressure 93/60 101/62 O2 Sat by Pulse 95 96 94 L Oximetry 04/23/23 04/23/23 16:40 17:20 Temperature Pulse Rate 90 92 Respiratory 18 17 Rate Blood Pressure 106/66 106/60 O2 Sat by Pulse 93 L 94 L Oximetry EKG Findings - EKG Results: EKG: interpreted by ERMD (Nonspecific ST-T), sinus rhythm, normal axis, normal QRS EKG shows: tachycardia Medical Decision Making - Medical Decision Making Was pt. sent in by a medical professional or institution (, PA, RETAIL DELIVERY DRIVER, urgent care, hospital, or usp...) When possible be specific @ -Patient was sent in by cardiology Dr. Herrera Did you speak to anyone other than the patient for history (EMS, parent, family, police, friend...)? What history was obtained from this source @ -Family is present helps provide history including patient's symptoms Did you review nursing and triage notes (agree or disagree)? Why? @ -I reviewed and agree with nursing and triage notes Were old charts reviewed (outside hosp., previous admission, EMS record, old EKG, old radiological studies, urgent care reports/EKG's, usp records)? Report findings @ -Previous procedure reviewed Differential Diagnosis (chest pain, altered mental status, abdominal pain women, abdominal pain men, vaginal bleeding, weakness, fever, dyspnea, syncope, headache, dizziness, GI bleed, back pain, seizure, CVA, palpatations, mental health, musculoskeletal)? @ -Differential Abdominal Pain Women: Appendicitis, Cholecystitis, diverticulosis, ischemic bowel, pancreatitis, hepatitis, UTI, gastroenteritis, AAA, incarcerated hernia, bowel obstruction, constipation, inflammatory bowel, hepatitis, peptic ulcer disease, splenic infarction, perforated viscus, vulvitis, ovarian torsion, PID, kidney stone, placenta abruption, this is not meant to be an all-inclusive list EKG interpreted by me (3pts min.). @ -As above X-rays interpreted by me (1pt min.). @ -Chest x-ray shows nonspecific interstitial prominence. CT interpreted by me (1pt min.). @ -None done U/S interpreted by me (1pt. min.). @ -Ultrasound negative for DVT What testing was considered but not performed or refused? (CT, X-rays, U/S, labs)? Why? @ -None What meds were considered but not given or refused? Why? @ -None Did you discuss the management of the patient with other professionals (professionals i.e. DrKaleb, PA, RETAIL DELIVERY DRIVER, lab, RT, psych nurse, director of social work, gas torch brazier, teacher, complaint evaluation officer, case resolution specialist)? Give summary @ -Case discussed [address] Herrera he is aware of troponin. He was very friendly with this patient including recent procedure. He is comfortable with discharge home. He does recommend holding Lasix but continuing beta-leonard. Was smoking cessation discussed for >3mins.? @ -No Was critical care preformed (if so, how long)? @ -No Were there social determinants of health that impacted care today? How? (Homelessness, low income, unemployed, alcoholism, drug addiction, transportation, low edu. Level, literacy, decrease access to med. care, fci, rehab)? @ -No Was there de-escalation of care discussed even if they declined (Discuss DNR or withdrawal of care, Hospice)? DNR status @ -No What co-morbidities impacted this encounter? (DM, HTN, Smoking, COPD, CAD, Cancer, CVA, ARF, Chemo, Hep., AIDS, mental health diagnosis, sleep apnea, m orbid obesity)? @ -None Was patient admitted / discharged? Hospital course, mention meds given and route, prescriptions, significant lab abnormalities, going to OR and other pertinent info. @ -Patient reevaluated and feeling much better following Zofran. Patient and family are updated on results and plan. Patient will be discharged with follow- up with primary care physician as well as Dr. Herrera Undiagnosed new problem with uncertain prognosis? @ -No Drug Therapy requiring intensive monitoring for toxicity (Heparin, Nitro, Insulin, Cardizem)? @ -No Were any procedures done? @ -No Diagnosis/symptom? @ -Vomiting Acute, or Chronic, or Acute on Chronic? @ -Acute Uncomplicated (without systemic symptoms) or Complicated (systemic symptoms)? @ -Default Side effects of treatment? @ -No Exacerbation, Progression, or Severe Exacerbation? @ -No Poses a threat to life or bodily function? How? (Chest pain, [place], [place], pneumonia, PE, COPD, DKA, ARF, appy, cholecystitis, CVA, Diverticulitis, Homicidal, Suicidal, threat to staff... and all critical care pts) @ -No - Lab Data Result diagrams: 04/23/23 16:28 04/23/23 16:28 Lab Results 04/23/23 04/23/23 04/23/23 Range/Units 16:28 16:28 16:28 WBC 13.4 H (3.8-10.6) k/uL RBC 4.65 (3.80-5.40) m/uL Hgb 14.6 (11.4-16.0) gm/dL Hct 41.5 (34.0-46.0) % MCV 89.2 (80.0-100.0) fL MCH 31.4 (25.0-35.0) pg MCHC 35.2 (31.0-37.0) g/dL RDW 13.6 (11.5-15.5) % Plt Count 166 (150-450) k/uL MPV 7.9 Neutrophils % 91 % Lymphocytes % 4 % Monocytes % 4 % Eosinophils % 0 % Basophils % 0 % Neutrophils # 12.2 H (1.3-7.7) k/uL Lymphocytes # 0.5 L (1.0-4.8) k/uL Monocytes # 0.5 (0-1.0) k/uL Eosinophils # 0.0 (0-0.7) k/uL Basophils # 0.1 (0-0.2) k/uL PT 11.4 (10.0-12.5) sec INR 1.1 (<1.2) APTT 25.7 (22.0-30.0) sec Sodium 128 L (137-145) mmol/L Potassium 3.7 (3.5-5.1) mmol/L Chloride 96 L (98-107) mmol/L Carbon Dioxide 24 (22-30) mmol/L Anion Gap 8 mmol/L BUN 23 H (7-17) mg/dL Creatinine 0.92 (0.52-1.04) mg/dL Est GFR (CKD-EPI)AfAm 73 (>60 ml/min/1.73 sqM) Est GFR (CKD-EPI)NonAf 63 (>60 ml/min/1.73 sqM) Glucose 142 H (74-99) mg/dL Plasma Lactic Acid Jay (0.7-2.0) mmol/L Calcium 8.7 (8.4-10.2) mg/dL Magnesium 1.9 (1.6-2.3) mg/dL Total Bilirubin 1.0 (0.2-1.3) mg/dL AST 49 H (14-36) U/L ALT 32 (4-34) U/L Alkaline Phosphatase 77 (38-126) U/L Troponin I (0.000-0.034) ng/mL Total Protein 6.3 (6.3-8.2) g/dL Albumin 3.9 (3.5-5.0) g/dL TSH 2.120 (0.465-4.680) mIU/L Influenza Type A (PCR) (Not Detectd) Influenza Type B (PCR) (Not Detectd) RSV (PCR) (Not Detectd) SARS-CoV-2 (PCR) (Not Detectd) 04/23/23 04/23/23 04/23/23 Range/Units 16:28 16:28 16:50 WBC (3.8-10.6) k/uL RBC (3.80-5.40) m/uL Hgb (11.4-16.0) gm/dL Hct (34.0-46.0) % MCV (80.0-100.0) fL MCH (25.0-35.0) pg MCHC (31.0-37.0) g/dL RDW (11.5-15.5) % Plt Count (150-450) k/uL MPV Neutrophils % % Lymphocytes % % Monocytes % % Eosinophils % % Basophils % % Neutrophils # (1.3-7.7) k/uL Lymphocytes # (1.0-4.8) k/uL Monocytes # (0-1.0) k/uL Eosinophils # (0-0.7) k/uL Basophils # (0-0.2) k/uL PT (10.0-12.5) sec INR (<1.2) APTT (22.0-30.0) sec Sodium (137-145) mmol/L Potassium (3.5-5.1) mmol/L Chloride (98-107) mmol/L Carbon Dioxide (22-30) mmol/L Anion Gap mmol/L BUN (7-17) mg/dL Creatinine (0.52-1.04) mg/dL Est GFR (CKD-EPI)AfAm (>60 ml/min/1.73 sqM) Est GFR (CKD-EPI)NonAf (>60 ml/min/1.73 sqM) Glucose (74-99) mg/dL Plasma Lactic Acid Jay 1.3 (0.7-2.0) mmol/L Calcium (8.4-10.2) mg/dL Magnesium (1.6-2.3) mg/dL Total Bilirubin (0.2-1.3) mg/dL AST (14-36) U/L ALT (4-34) U/L Alkaline Phosphatase (38-126) U/L Troponin I 1.420 H* (0.000-0.034) ng/mL Total Protein (6.3-8.2) g/dL Albumin (3.5-5.0) g/dL TSH (0.465-4.680) mIU/L Influenza Type A (PCR) Not Detected (Not Detectd) Influenza Type B (PCR) Not Detected (Not Detectd) RSV (PCR) Not Detected (Not Detectd) SARS-CoV-2 (PCR) Not Detected (Not Detectd) Disposition Clinical Impression: Vomiting Disposition: HOME SELF-CARE Condition: Stable Instructions (If sedation given, give patient instructions): Acute Nausea and Vomiting (ED) Additional Instructions: Prescription for nausea medicine has been sent to pharmacy. As directed by Dr. Herrera, please hold Lasix. As directed by Dr. Herrera please continue beta- leonard. Please do follow-up with Dr. Herrera and your primary care physician in the next couple of days for recheck. Return for uncontrolled vomiting, pain, fevers, worsening or changing symptoms or other concerns Prescriptions: Ondansetron Odt [Zofran Odt] 4 mg PO Q8HR PRN #10 tab PRN Reason: Nausea Is patient prescribed a controlled substance at d/c from ED?: No Referrals: Anjali Acharya MD [Primary Care Provider] - 1-2 days Time of Disposition: 19:05
[2023-04-23] MEDS: ONDANSETRON 4 MG/2 ML VIAL IVP STA (16:36)
[2023-04-23] MEDS: SODIUM CHLORIDE 0.9% 1,000 ML IV STA (16:36)
[2023-04-23] MEDS: FAMOTIDINE 20 MG/2 ML VIAL IV STA (16:36)
[2023-04-23 16:46] LABS: Basophils # (A) 0.1 k/uL (0-0.2); Basophils % (A) 0 %; Eosinophils % (A) 0 %; HCT 41.5 % (34.0-46.0); HGB 14.6 gm/dL (11.4-16.0); Lymphocytes # (A) 0.5 k/uL (1.0-4.8); Lymphocytes % (A) 4 %; MCH 31.4 pg (25.0-35.0); MCHC 35.2 g/dL (31.0-37.0); MCV 89.2 fL (80.0-100.0); Mean Platelet Volume 7.9; Monocytes # (A) 0.5 k/uL (0-1.0); Monocytes % (A) 4 %; Neutrophils # (A) 12.2 k/uL (1.3-7.7); Neutrophils % (A) 91 %; Platelet Count 166 k/uL (150-450); RBC 4.65 m/uL (3.80-5.40); RDW 13.6 % (11.5-15.5); WBC 13.4 k/uL (3.8-10.6)
[2023-04-23 16:58] LABS: INR 1.1 (<1.2); Partial Thromboplastin Time 25.7 sec (22.0-30.0); Prothrombin Time 11.4 sec (10.0-12.5)
[2023-04-23 17:06] LABS: ALT 32 U/L (4-34); AST 49 U/L (14-36); African American GFR (CKD) 73 (>60 ml/min/1.73 sqM); Albumin 3.9 g/dL (3.5-5.0); Alkaline Phosphatase 77 U/L (38-126); Anion Gap 8 mmol/L; Blood Urea Nitrogen 23 mg/dL (7-17); Calcium 8.7 mg/dL (8.4-10.2); Carbon Dioxide 24 mmol/L (22-30); Chloride 96 mmol/L (98-107); Glucose 142 mg/dL (74-99); Magnesium 1.9 mg/dL (1.6-2.3); Non-African American GFR(CKD) 63 (>60 ml/min/1.73 sqM); Potassium 3.7 mmol/L (3.5-5.1); Sodium 128 mmol/L (137-145); Total Protein 6.3 g/dL (6.3-8.2)
--- NOTE | 2023-04-23 18:46 | US ---
EXAMINATION TYPE: US venous doppler duplex UE RT DATE OF EXAM: 04/23/2023 COMPARISON: NONE CLINICAL INDICATION: Female, 72 years old with history of eval for thrombus; Pt had stents placed in her heart with a right radial approach on 04/18/23. No hx of DVT. Not on blood thinners. No swelling, redness, or pain SIDE PERFORMED: Right TECHNIQUE: Grayscale, color doppler, spectral doppler imaging performed of the deep veins of the rig ht upper extremity. Right Arm: No evidence for DVT There is normal flow, compressibility and vascular waveforms. IMPRESSION: No evidence for DVT within the right upper extremity.
--- NOTE | 2023-04-23 18:53 | XR ---
EXAMINATION TYPE: XR chest 2V DATE OF EXAM: 04/23/2023 COMPARISON: None HISTORY: 72-year-old female with weakness and nausea TECHNIQUE: AP and lateral views FINDINGS: Heart borderline enlarged. Mild interstitial density. Mild hyperinflation. No consolidation or pleura l effusion. IMPRESSION: COPD. Interstitial prominence could reflect a prominent component of chronic bronchitis or superimpos ed acute bronchitis. No focal infiltrate seen.
[2023-04-23 19:30] VITALS: BP 98/67; PULSE 64; RESP 18; TEMP 98
== END 2023-04-23 19:24 | disposition home or self-care (01) ==
LOC: EC 15:48
DX: R11.2 Nausea with vomiting, unspecified (principal); R00.0 Tachycardia, unspecified; I25.10 Atherosclerotic heart disease of native coronary artery without angina pectoris; I10 Essential (primary) hypertension; E07.9 Disorder of thyroid, unspecified; Z87.891 Personal history of nicotine dependence; Z79.890 Hormone replacement therapy; Z79.899 Other long term (current) drug therapy; Z20.822 Contact with and (suspected) exposure to COVID-19
CPT/HCPCS: 36415; 93005; 80053; 83605; 83735; 84443; 84484; 85025; 85610; 85730; 87636; 71046; 93971; 99285; 96374; 96375; 96361 ×3; J2405; J3490

== ENCOUNTER 2023-05-03 08:10 | Inpatient (IN) | payer BC ==
[~2023-05-03 08:10] MED LIST changes: -ALPRAZolam 0.5 MG TAB PO PRN; +CHLORHEXIDINE GLUCONATE 15 ML CUP MUCOUS MEM ONE; -NITROGLYCERIN SL TABS 0.4 MG TAB SUBLINGUAL PRN
--- NOTE | 2023-05-03 08:32 | ED ---
General Adult HPI - General Chief complaint: Weakness Stated complaint: left leg numbness Time Seen by Provider: 05/03/23 08:18 Source: patient, RN notes reviewed Mode of arrival: ambulatory Limitations: no limitations - History of Present Illness Initial comments: Patient is a pleasant 72-year-old female presenting to the emergency department with concerns for left leg numbness. Onset of symptoms was when she woke this morning. Last known well was when she bent to bed around 11:00 last night. Patient did have difficulty walking on her left leg. Patient did have some pain in her left leg for short period of time however that has resolved. Otherwise no pain. Patient states the numbness has mostly resolved during examination at this time however still feels it is a little bit weak. No history of similar symptoms previously. Patient did have heart catheterization done less than 2 weeks ago where they went through her right radial artery - Related Data Home Medications Medication Instructions Recorded Confirmed Aspirin EC [Ecotrin Low Dose] 81 mg PO DAILY 04/04/23 05/03/23 Ergocalciferol [Vitamin D2 (1250 1,250 mcg PO SA 04/04/23 05/03/23 Mcg = [id number] Iu)] Levothyroxine Sodium [Synthroid] 100 mcg PO DAILY 04/04/23 05/03/23 Furosemide [Lasix] 20 mg PO DAILY 04/15/23 05/03/23 Losartan-Hctz 50-12.5 mg [Hyzaar 1 tab PO DAILY 04/15/23 05/03/23 50-12.5] Fexofenadine/Pseudoephedrine 1 tab PO DAILY PRN 04/23/23 05/03/23 [Naheed-D 24 Hour Tablet] Nitroglycerin Sl Tabs [Nitrostat] 0.4 mg SUBLINGUAL Q5M PRN 04/23/23 05/03/23 Ticagrelor [Brilinta] 90 mg PO BID 04/23/23 05/03/23 Previous Rx's Medication Instructions Recorded Atorvastatin [Lipitor] 80 mg PO DAILY #0 tab 04/10/23 Metoprolol Tartrate [Lopressor] 25 mg PO BID #0 tab 04/10/23 Ondansetron Odt [Zofran Odt] 4 mg PO Q8HR PRN #10 tab 04/23/23 Allergies Allergy/AdvReac Type Severity Reaction Status Date / Time No Known Allergies Allergy Verified 05/03/23 10:08 Review of Systems ROS Statement: Those systems with pertinent positive or pertinent negative responses have been documented in the HPI. ROS Other: All systems not noted in ROS Statement are negative. Constitutional: Denies: fever Eyes: Denies: eye pain ENT: Denies: ear pain Respiratory: Denies: cough Cardiovascular: Denies: chest pain Neurological: Reports: as per HPI, weakness, numbness. Denies: headache Past Medical History Past Medical History: Coronary Artery Disease (CAD), Hyperlipidemia, Hypertension, Thyroid Disorder Additional Past Medical History / Comment(s): HAD CHANGES IN STRESS TEST SINCE LAST Year. Mitral regurgitation. 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 BREAST REDUCTION 2009 Past Anesthesia/Blood Transfusion Reactions: No Reported Reaction, Postoperative Nausea & Vomiting (PONV) Past Psychological History: No Psychological Hx Reported Smoking Status: Former smoker Past Alcohol Use History: None Reported Past Drug Use History: None Reported - Past Family History Mother Family Medical History: No Reported History General Exam Limitations: no limitations General appearance: alert, in no apparent distress Head exam: Present: normocephalic Eye exam: Present: normal appearance, PERRL, EOMI ENT exam: Present: normal oropharynx Neck exam: Present: normal inspection Respiratory exam: Present: normal lung sounds bilaterally Cardiovascular Exam: Present: regular rate, normal rhythm Expanded Peripheral pulses: 1+: Dorsalis Pedis (R), Dorsalis Pedis (L), 2+: Radial (R), Radial (L) GI/Abdominal exam: Present: soft. Absent: tenderness Extremities exam: Present: normal inspection, full ROM. Absent: tenderness Neurological exam: Present: alert, oriented X3, CN II-XII intact Expanded Neurological exam: Present: protecting the airway Patient oriented to: Present: person, place, time Speech: Present: fluid speech Cranial nerves: EOM's Intact: Normal, Facial Sensation: Normal Sensory exam: Upper Extremity Light Touch: Normal, Lower Extremity Light Touch: Normal Motor strength exam: RUE: 5, LUE: 5, RLE: 5, LLE: 3 Eye Response: (4) open spontaneously Motor Response: (6) obeys commands Verbal Response: (5) oriented Psychiatric exam: Present: normal affect, normal mood Skin exam: Present: normal color Course Vital Signs 05/03/23 05/03/23 05/03/23 08:13 09:16 09:29 Temperature 97.6 F Pulse Rate 68 70 60 Respiratory 20 18 18 Rate Blood Pressure 58/36 107/58 95/49 O2 Sat by Pulse 96 98 98 Oximetry 05/03/23 05/03/23 05/03/23 09:30 09:58 10:10 Temperature Pulse Rate 62 60 72 Respiratory 18 18 18 Rate Blood Pressure 108/57 103/75 129/56 O2 Sat by Pulse 98 98 96 Oximetry 05/03/23 05/03/23 05/03/23 10:26 10:46 11:00 Temperature Pulse Rate 60 60 54 L Respiratory 18 18 18 Rate Blood Pressure 124/51 130/61 136/58 O2 Sat by Pulse 98 98 95 Oximetry 05/03/23 11:24 Temperature Pulse Rate 64 Respiratory 18 Rate Blood Pressure 126/67 O2 Sat by Pulse 98 Oximetry - Reevaluation(s) Reevaluation #1: 05/03/23 09:44 Patient reexamined. Patient is starting to have pain again. Blood pressure has improved. Heart rate remains stable. Patient and family are updated. Case was discussed with Dr. Rai who recommends calling Dr. barber who is in house Case was discussed with Dr. barber who recommends calling cardiothoracic surgeon. Case was discussed with practitioner Freddie Willett who recommends calling Dr. Lacey. Case was discussed with Dr. Lacey who recommends transfer. 05/03/23 10:17 Case discussed with [facility] of transfer team, Dr. Andriy Renteria and Dr. Cleveland. They are not able to accept patient. Length of call was 15 minutes. Old labs reviewed Case discussed with Devendra at [facility]. They will call back 05/03/23 10:25 [facility] did call back and unable to accept patient. 05/03/23 10:31 [facility] unable to accept patient secondary to being full. I did discuss with Dr. Lacey again who recommends stat echo and getting in touch with [facility] 05/03/23 10:49 Dr. Lacey did come evaluate patient and will get additional equipment and will take patient to the OR here. EKG Findings - EKG Results: EKG: interpreted by ERMD, sinus rhythm, normal axis, normal QRS, normal ST/T Medical Decision Making - Medical Decision Making See above in the clinical decision making Was pt. sent in by a medical professional or institution (, YURI, PRE PLANNING ADVISOR, urgent care, hospital, or [facility]...) When possible be specific @ -No Did you speak to anyone other than the patient for history (EMS, parent, family, police, friend...)? What history was obtained from this source @ -Family and EMS provide additional history Did you review nursing and triage notes (agree or disagree)? Why? @ -I reviewed and agree with nursing and triage notes Were old charts reviewed (outside hosp., previous admission, EMS record, old EKG, old radiological studies, urgent care reports/EKG's, [facility] records)? Report findings @ -Previous labs reviewed Differential Diagnosis (chest pain, altered mental status, abdominal pain women, abdominal pain men, vaginal bleeding, weakness, fever, dyspnea, syncope, headache, dizziness, GI bleed, back pain, seizure, CVA, palpatations, mental health, musculoskeletal)? @ -Differential Weakness: Hypoglycemia, shock, sepsis, hyponatremia, anemia, infection, TN, ETOH, adverse medicine reaction, overdose, stroke, this is not meant to be an all-inclusive list. EKG interpreted by me (3pts min.). @ -As above X-rays interpreted by me (1pt min.). @ -Chest x-ray shows no acute process CT interpreted by me (1pt min.). @ -CT scan of the brain shows no acute process. CT angios show large thoracic dissection from the ascending aorta down to the bifurcation with large false lumen. U/S interpreted by me (1pt. min.). @ -None done What testing was considered but not performed or refused? (CT, X-rays, U/S, labs)? Why? @ -Echo ordered What meds were considered but not given or refused? Why? @ -None Did you discuss the management of the patient with other professionals (professionals i.e. YURI Wade, PRE PLANNING ADVISOR, lab, RT, psych nurse, licensed clinical social worker, straightedge machine operator helper, teacher, sales officer, showcase trimmer)? Give summary @ -See above Was smoking cessation discussed for >3mins.? @ -No Was critical care preformed (if so, how long)? @ -94 minutes critical care time Were there social determinants of health that impacted care today? How? (Homelessness, low income, unemployed, alcoholism, drug addiction, trans portation, low edu. Level, literacy, decrease access to med. care, fdc, rehab)? @ -No Was there de-escalation of care discussed even if they declined (Discuss DNR or withdrawal of care, Hospice)? DNR status @ -No What co-morbidities impacted this encounter? (DM, HTN, Smoking, COPD, CAD, Cancer, CVA, ARF, Chemo, Hep., AIDS, mental health diagnosis, sleep apnea, morbid obesity)? @ -Recent stenting. Hyperlipidemia and hypertension Was patient admitted / discharged? Hospital course, mention meds given and route, prescriptions, significant lab abnormalities, going to OR and other pertinent info. @ -See above. Dr. Lacey did evaluate patient and patient will be taken to the OR here once additional equipment is obtained. Patient was reevaluated several times. Patient and family are updated several times Undiagnosed new problem with uncertain prognosis? @ -No Drug Therapy requiring intensive monitoring for toxicity (Heparin, Nitro, Insulin, Cardizem)? @ -No Were any procedures done? @ -No Diagnosis/symptom? @ -Thoracic dissection Acute, or Chronic, or Acute on Chronic? @ -Acute Uncomplicated (without systemic symptoms) or Complicated (systemic symptoms)? @ -Complicated with renal impairment and leg weakness, possible ischemia Side effects of treatment? @ -No Exacerbation, Progression, or Severe Exacerbation? @ -No Poses a threat to life or bodily function? How? (Chest pain, [place], TN, pneumonia, PE, COPD, DKA, ARF, appy, cholecystitis, CVA, Diverticulitis, Homicidal, Ashley cidal, threat to staff... and all critical care pts) @ -Large potential to threat of life and function of kidneys and leg and other. Case also discussed with Dr. Carson. Patient has now gone to the OR at 11:30 AM. - Lab Data Result diagrams: 05/03/23 08:34 05/03/23 08:34 Lab Results 05/03/23 05/03/23 05/03/23 Range/Units 08:34 08:34 08:34 WBC 14.7 H (3.8-10.6) k/uL RBC 3.51 L (3.80-5.40) m/uL Hgb 10.8 L D (11.4-16.0) gm/dL Hct 31.4 L (34.0-46.0) % MCV 89.6 (80.0-100.0) fL MCH 30.7 (25.0-35.0) pg MCHC 34.3 (31.0-37.0) g/dL RDW 13.7 (11.5-15.5) % Plt Count 245 (150-450) k/uL MPV 8.0 Neutrophils % 88 % Lymphocytes % 6 % Monocytes % 3 % Eosinophils % 1 % Basophils % 1 % Neutrophils # 13.0 H (1.3-7.7) k/uL Lymphocytes # 0.8 L (1.0-4.8) k/uL Monocytes # 0.5 (0-1.0) k/uL Eosinophils # 0.2 (0-0.7) k/uL Basophils # 0.1 (0-0.2) k/uL Manual Slide Review Performed PT 10.7 (10.0-12.5) sec INR 1.0 (<1.2) APTT 23.8 (22.0-30.0) sec Sodium 132 L (137-145) mmol/L Potassium 3.5 (3.5-5.1) mmol/L Chloride 100 (98-107) mmol/L Carbon Dioxide 26 (22-30) mmol/L Anion Gap 6 mmol/L BUN 33 H (7-17) mg/dL Creatinine 2.57 H (0.52-1.04) mg/dL Est GFR (CKD-EPI)AfAm 21 (>60 ml/min/1.73 sqM) Est GFR (CKD-EPI)NonAf 18 (>60 ml/min/1.73 sqM) Glucose 115 H (74-99) mg/dL Plasma Lactic Acid Jay (0.7-2.0) mmol/L Calcium 8.0 L (8.4-10.2) mg/dL Total Bilirubin 0.6 (0.2-1.3) mg/dL AST 27 (14-36) U/L ALT 25 (4-34) U/L Alkaline Phosphatase 79 (38-126) U/L Creatine Kinase 54 (30-135) U/L Total Protein 5.3 L (6.3-8.2) g/dL Albumin 2.8 L (3.5-5.0) g/dL 05/03/23 Range/Units 10:08 WBC (3.8-10.6) k/uL RBC (3.80-5.40) m/uL Hgb (11.4-16.0) gm/dL Hct (34.0-46.0) % MCV (80.0-100.0) fL MCH (25.0-35.0) pg MCHC (31.0-37.0) g/dL RDW (11.5-15.5) % Plt Count (150-450) k/uL MPV Neutrophils % % Lymphocytes % % Monocytes % % Eosinophils % % Basophils % % Neutrophils # (1.3-7.7) k/uL Lymphocytes # (1.0-4.8) k/uL Monocytes # (0-1.0) k/uL Eosinophils # (0-0.7) k/uL Basophils # (0-0.2) k/uL Manual Slide Review PT (10.0-12.5) sec INR (<1.2) APTT (22.0-30.0) sec Sodium (137-145) mmol/L Potassium (3.5-5.1) mmol/L Chloride (98-107) mmol/L Carbon Dioxide (22-30) mmol/L Anion Gap mmol/L BUN (7-17) mg/dL Creatinine (0.52-1.04) mg/dL Est GFR (CKD-EPI)AfAm (>60 ml/min/1.73 sqM) Est GFR (CKD-EPI)NonAf (>60 ml/min/1.73 sqM) Glucose (74-99) mg/dL Plasma Lactic Acid Jay 1.5 (0.7-2.0) mmol/L Calcium (8.4-10.2) mg/dL Total Bilirubin (0.2-1.3) mg/dL AST (14-36) U/L ALT (4-34) U/L Alkaline Phosphatase (38-126) U/L Creatine Kinase (30-135) U/L Total Protein (6.3-8.2) g/dL Albumin (3.5-5.0) g/dL Critical Care Time Critical Care Time: Yes Total Critical Care Time: 94 Disposition Clinical Impression: Thoracic aortic dissection Disposition: ADMITTED IP TO THIS HOSP Condition: Critical Is patient prescribed a controlled substance at d/c from ED?: No Time of Disposition: 10:53
[2023-05-03] MEDS: SODIUM CHLORIDE 0.9% 1,000 ML IV STA (08:34)
[2023-05-03] MEDS: SODIUM CHLORIDE 0.9% 500 ML 500 ML IV STA (08:34)
[2023-05-03 08:54] VITALS: TEMP 97.6
[2023-05-03 08:56] LABS: ALT 25 U/L (4-34); AST 27 U/L (14-36); African American GFR (CKD) 21 (>60 ml/min/1.73 sqM); Albumin 2.8 g/dL (3.5-5.0); Alkaline Phosphatase 79 U/L (38-126); Anion Gap 6 mmol/L; Blood Urea Nitrogen 33 mg/dL (7-17); Carbon Dioxide 26 mmol/L (22-30); Chloride 100 mmol/L (98-107); Creatine Kinase 54 U/L (30-135); Glucose 115 mg/dL (74-99); Non-African American GFR(CKD) 18 (>60 ml/min/1.73 sqM); Potassium 3.5 mmol/L (3.5-5.1); Sodium 132 mmol/L (137-145); Total Bilirubin 0.6 mg/dL (0.2-1.3); Total Protein 5.3 g/dL (6.3-8.2)
[2023-05-03 09:02] LABS: Basophils # (A) 0.1 k/uL (0-0.2); Basophils % (A) 1 %; Eosinophils # (A) 0.2 k/uL (0-0.7); Eosinophils % (A) 1 %; HCT 31.4 % (34.0-46.0); Lymphocytes # (A) 0.8 k/uL (1.0-4.8); Lymphocytes % (A) 6 %; MCH 30.7 pg (25.0-35.0); MCHC 34.3 g/dL (31.0-37.0); MCV 89.6 fL (80.0-100.0); Monocytes # (A) 0.5 k/uL (0-1.0); Monocytes % (A) 3 %; Neutrophils % (A) 88 %; Platelet Count 245 k/uL (150-450); RBC 3.51 m/uL (3.80-5.40); RDW 13.7 % (11.5-15.5); WBC 14.7 k/uL (3.8-10.6)
[2023-05-03 09:03] LABS: Partial Thromboplastin Time 23.8 sec (22.0-30.0); Prothrombin Time 10.7 sec (10.0-12.5)
--- NOTE | 2023-05-03 09:03 | CT ---
EXAMINATION TYPE: CT brain wo con DATE OF EXAM: 05/03/2023 COMPARISON: None HISTORY: 72-year-old female neurologic deficit, acute, stroke suspected, Lt leg weakness TECHNIQUE: Examination was done in axial plane without intravenous contrast. Coronal and sagittal r econstructions performed. CT DLP: 1099.6 mGycm Automated exposure control for dose reduction was used. FINDINGS: There is no evidence of acute intracranial hemorrhage, acute ischemic changes, mass, mass-effect, or extra-axial fluid collection. There is no effacement of cerebral sulci or basal subarachnoid cister ns. There is no hydrocephalus. There is no midline shift. Crenshaw-white matter distinction is preserv ed. Atherosclerotic calcifications in both carotid siphons. Mild patchy white matter hypodensities in bot h cerebral hemispheres. Moderate mucosal thickening throughout the right maxillary sinus. Trace along the floor of the left m axillary sinus. Rightward nasal septal deviation. Mastoid air cells well pneumatized. Orbits and glob es are intact. IMPRESSION: 1. Mild patchy burden of chronic small vessel ischemic disease. 2. No acute intracranial abnormality seen.
[2023-05-03 09:08] LABS: HGB 10.8 gm/dL (11.4-16.0)
--- NOTE | 2023-05-03 09:22 | CT ---
EXAMINATION TYPE: CT angio head neck DATE OF EXAM: 05/03/2023 COMPARISON: CT brain same day HISTORY: 72-year-old female neurologic deficit, acute, stroke suspected, left leg weakness. TECHNIQUE: CT of the head and neck after administration of 60 mL Isovue-370 IV contrast. Coronal/sagi ttal reconstructions performed. 3-D reconstructions generated on a dedicated independent workstation. CT DLP: mGycm Automated exposure control for dose reduction was used. FINDINGS: NECK: CTA chest and abdomen are being performed separately but there is a large [place] type A dissection noted. The false lumen is large but shows some enhancement. The true lumen is partially collapsing an d located medial at the ascending aorta, inferior at the aortic arch, and anterior at the visualized upper descending. The true lumen continues to supply the great vessels from the arch. The vertebral arteries are codominant and patent throughout the course. There may be mild narrowing at the origin of the brachiocephalic artery due to mass effect from the f alse lumen. The right common or right internal carotid arteries are widely patent with only minimal atherosclerot ic calcification of the bifurcations. NASCET criteria visualized. Incidental 2.1 x 2.0 x 1.2 cm solid enhancing mass of the left parotid gland. HEAD: Mild atherosclerotic calcification V4 segment left vertebral artery. There is mild focal narrowing distal basilar artery. Moderate focal stenosis P1 segment left INTERACTIVE MEDIA DIRECTOR, thin cut axial series 405 image 654. Otherwise, the posterior circulation appears patent. Moderate atherosclerotic calcifications within the bilateral carotid siphons with segmental mild sten oses There is a tiny 3 mm protuberance from the lateral wall of the cavernous segment left ICA, axial imag e 618. Otherwise, the anterior circulation is patent. IMPRESSION: NECK: 1. LARGE [place] TYPE A AORTIC DISSECTION. THE GREAT VESSELS OF THE AORTIC ARCH ARE SUPPLIED BY THE TRUE LUMEN AND REMAIN PATENT. THERE IS MILD NARROWING AT THE ORIGIN OF THE BRACHIOCEPHALIC ARTERY DUE TO MASS EFFECT FROM THE LARGE, FALSE LUMEN. THE TRUE LUMEN WITHIN THE VISUALIZED ARCH IS PARTIALLY C OLLAPSING. 2. OTHERWISE, WIDELY PATENT VERTEBRAL AND CAROTID ARTERIES OF THE NECK WITH ONLY MINIMAL ATHEROSCLERO TIC CALCIFICATION. 3. INCIDENTAL 2.0 X 2.1 X 1.2 CM ENHANCING SOLID MASS OF THE LEFT PAROTID GLAND. ENT REFERRAL FOR FUR THER MANAGEMENT. HEAD: 4. MILD FOCAL STENOSIS DISTAL BASILAR ARTERY AND MODERATE FOCAL STENOSIS P1 SEGMENT LEFT INTERACTIVE MEDIA DIRECTOR. 5. ATHEROSCLEROTIC CALCIFICATIONS THROUGHOUT THE CAROTID SIPHONS RESULTING IN MILD SEGMENTAL STENOSES . 6. TINY 3 MM ANEURYSM FROM THE LATERAL WALL OF THE CAVERNOUS SEGMENT LEFT ICA. CONSIDER 6 MONTH FOLLO W-UP MRA. 7. OTHERWISE, NO LARGE VESSEL INTRACRANIAL ARTERIAL OCCLUSION, SIGNIFICANT STENOSIS, OR OTHER ANEURYS MAL CHANGE IS SEEN. CALLED TO DR. AQUINO AT 9:18AM.
[2023-05-03] MEDS: HYDROmorphone 1 MG/ML 1 ML SYRINGE IVP STA (09:30)
--- NOTE | 2023-05-03 09:33 | XR ---
EXAMINATION TYPE: XR chest 2V DATE OF EXAM: 05/03/2023 COMPARISON: 04/23/2023 INDICATION: Altered mental status TECHNIQUE: Frontal and lateral views of the chest are obtained. FINDINGS: The heart size is normal. The pulmonary vasculature is normal. The lungs are clear. IMPRESSION: 1. No acute pulmonary process.
[2023-05-03 09:36] VITALS: RESP 18
--- NOTE | 2023-05-03 09:40 | CT ---
EXAMINATION TYPE: CT angio thor/abd pel aorta DATE OF EXAM: 05/03/2023 COMPARISON: None HISTORY: 72-year-old female Hypotension, abn Carotid CT, Lt leg weakness TECHNIQUE: Contiguous axial scanning of the chest performed without IV contrast. Subsequent scanning of the chest, abdomen, and pelvis with IV Contrast, patient injected with 100 mL of Isovue 300. Coron al/sagittal reconstructions performed. 3-D reconstructions generated on a dedicated independent works tation. CT DLP: 843.1 mGycm Automated exposure control for dose reduction was used. FINDINGS: CHEST: Heart is borderline enlarged. No pericardial effusion. Mitral annular calcifications. Three-vessel c oronary artery calcifications are present. No thoracic lymphadenopathy by CT size criteria. Moderate emphysematous change. There is some focal bronchial wall thickening lateral right midlung. Correlate to exclude bronchiolitis. No pleural effusion. * Focal irregular opacity measuring 2 cm superior segment left lower lobe. Neoplasm should be exclud ed. * 6 mm pulmonary nodule posterior right lower lobe, axial image 104. VASCULATURE: Aortic root is ectatic at 3.5 cm. There is a Mg type A aortic dissection beginning just above the right coronary cusp with a larg e false lumen that extends along the lateral aspect of the ascending aorta, inferior aspect of the ao rtic arch, and anterior aspect of the descending aorta. The ascending aorta is aneurysmal at 4.2 cm and upper descending thoracic aorta is ectatic at 3.1 cm. The brachiocephalic artery, left common carotid artery, and left subclavian artery are all supplied b y the true lumen with mild narrowing at the origin of the brachiocephalic artery due to mass effect f rom the large false lumen. In the abdomen, the celiac axis, SMA, right renal artery, SUSANNAH, and right common iliac artery are supp lied by the true lumen. There is some enhancement of the false lumen within the upper and mid chest but contrast enhancement fades out in the abdomen. The left renal artery and left common iliac artery are supplied by the false lumen and show no enhanc ement on this phase. There is partial dynamic collapsibility of the true lumen noted within the chest but with more severe collapse of the true lumen at the level of the celiac axis and only a slitlike true lumen just befor e the aortic bifurcation. ABDOMEN: Arterial phase imaging of the liver, gallbladder, kidneys, spleen, and pancreas show no gross abnorma lity. Diffuse thickening of the bilateral adrenal glands may reflect underlying adrenal hyperplasia. No dilated small bowel, free fluid, or free air. No mesenteric or retroperitoneal lymphadenopathy. Normal appendix. Mild overall stable wording. PELVIS: Mild cervical ventral bladder wall thickening. Mild perivesicular fat stranding. Correlate to exclude cystitis. Uterus surgically absent. Neither ovary clearly identified. No abnormal fluid collection i n the pelvis or pelvic lymphadenopathy. BONES: Mild to moderate degenerative change of both hips. Moderately advanced spondylotic change lumbar spin e. No osseous destructive process seen. IMPRESSION: VASCULATURE: 1. Large Mg type A aortic dissection which starts just above the right coronary cusp and extend s down to the aortic bifurcation. The left common iliac artery is supplied entirely by the false lume n and is nonopacified. 2. The false lumen shows some enhancement in the chest but loses enhancement within the abdomen. Ther e is dynamic collapsibility of the true lumen. It is pancaked anteriorly at the level of the celiac a xis and becomes slitlike at the aortic bifurcation prior to supplying the right common iliac artery. 3. The great vessels from the arch are supplied by the true lumen as is the celiac axis, SMA, SUSANNAH, an d right renal artery. Left renal artery and left common iliac artery supplied by the false lumen. 4. Ascending aortic caliber 4.2 cm. INCIDENTAL: 5. Note the 2 cm left parotid mass seen on CTA neck. 6. Also, note the 2 cm left midlung mass, possible early lung cancer for which appropriate follow-up is recommended. A 6 mm right basilar pulmonary nodule should be followed. 7. Circumferential bladder wall thickening could be chronic for the patient. Correlate to exclude cys titis. Critical findings discussed with Dr. Valle over the phone at 9:20 AM.
[2023-05-03] MEDS ORDERED: fentaNYL (PF) 50 MCG/ML 2 ML AMP IVP PRN (09:46)
[2023-05-03] MEDS: fentaNYL (PF) 50 MCG/ML 2 ML AMP IVP ONE (09:51)
[2023-05-03] MEDS ORDERED: NALOXONE 0.4 MG/ML 1 ML VIAL IV PRN (10:54)
[2023-05-03] MEDS ORDERED: NITROGLYCERIN-D5W PMX 25 MG/250 ML BTL IV ONE (10:59)
[2023-05-03] MEDS ORDERED: TRANEXAMIC ACID 2,000 MG in SODIUM CHLORIDE 0.9% 80 ML IV ONE (10:59)
[2023-05-03] MEDS ORDERED: CLEVIDIPINE BUTYRATE 25 MG in EMPTY BAG 1 BAG IV SCH (10:59)
[2023-05-03] MEDS ORDERED: PROTAMINE SULFATE 250 MG in EMPTY BAG 1 BAG IV ONE (10:59)
[2023-05-03] MEDS ORDERED: ALBUMIN HUMAN 5% 500 ML in EMPTY BAG 1 BAG IVPB ONE ×6 (10:59)
[2023-05-03] MEDS ORDERED: PAPAVERINE 360 MG in SODIUM CHLORIDE 0.9% 90 ML IV ONE (10:59)
[2023-05-03] MEDS ORDERED: SODIUM BICARB 8.4% 50 ML SYR (1 MEQ/ML) IV ONE (10:59)
[2023-05-03] MEDS ORDERED: PHENYLEPHRINE 40 MG in SODIUM CHLORIDE 0.9% 250 ML IV ONE (10:59)
[2023-05-03] MEDS ORDERED: ALBUMIN HUMAN 25% 50 ML in EMPTY BAG 1 BAG IVPB ONE (10:59)
[2023-05-03] MEDS ORDERED: MAGNESIUM SULFATE 16.24 MEQ in EMPTY SYRINGE 1 SYR IV ONE (10:59)
[2023-05-03] MEDS ORDERED: MANNITOL 25% 12.5 GM/50 ML VIAL IV ONE ×2 (10:59)
[2023-05-03] MEDS ORDERED: CALCIUM CHLORIDE 100 MG/ML 10 ML SYRINGE IVP ONE (10:59)
[2023-05-03] MEDS ORDERED: ELECTROLYTE-A SOLUTION 1,000 ML with POTASSIUM CHLORIDE 40 MEQ, MAGNESIUM SULFATE 16 ME... IV ONE (10:59)
[2023-05-03] MEDS ORDERED: NITROGLYCERIN-D5W PMX 50 MG in DEXTROSE/WATER 1 250ML.BAG IV SCH (10:59)
[2023-05-03] MEDS ORDERED: NOREPINEPHRINE 4 MG in SODIUM CHLORIDE 0.9% 250 ML IV SCH (10:59)
[2023-05-03] MEDS ORDERED: PHENYLEPHRINE 10 MG/ML VIAL IV ONE (10:59)
[2023-05-03] MEDS ORDERED: MD COMMUNICATION TO PHARMACY 1 EACH MISC PO ONE ×5 (10:59)
[2023-05-03] MEDS ORDERED: PROTAMINE SULFATE 10 MG/ML 25 ML VIAL IV ONE ×2 (10:59→12:09)
[2023-05-03] MEDS ORDERED: HEPARIN SODIUM 1,000 UN/ML (10ML VL) IV ONE (10:59)
[2023-05-03] MEDS ORDERED: ELECTROLYTE-A SOLUTION 1,000 ML with POTASSIUM CHLORIDE 100 MEQ, MAGNESIUM SULFATE 16 M... IV ONE (10:59)
[2023-05-03] MEDS ORDERED: INSULIN REGULAR 100 UNIT in SODIUM CHLORIDE 0.9% 100 ML IV SCH (11:00)
[2023-05-03] MEDS ORDERED: SODIUM CHLORIDE 0.9% 1,000 ML IV SCH (11:00)
[2023-05-03] MEDS ORDERED: MUPIROCIN 2% OINT 22 GM TUBE NASAL SCH (11:15)
[2023-05-03 11:35] VITALS: BP 126/67; PULSE 64
--- NOTE | 2023-05-03 11:56 | P.GSCN ---
History of Present Illness Consult date: 05/03/23 Reason for Consult: [place] type A aortic dissection Requesting physician: Vik Valle History of present illness: This is a 72-year-old female patient who follows on an outpatient basis with Dr. Acharya for her primary care and Dr. JONATHAN Herrera for her cardiology care. She has a past medical history significant for coronary artery disease with recent PCI, hypertension, hyperlipidemia, mitral valve regurgitation with hypertrophic obstructive cardiomyopathy, hypothyroid and previous tobacco dependence. The patient reports on Friday, April 28, 2023 she woke up with complaints of nausea and was unable to eat or take her medications. Over the course of the week the patient nausea resolved and on Monday, May 01, 2023 was able to have a meal without feeling nauseous. This morning the patient woke up with complaints of numbness and limited movement to her left leg. She denies any recent fever, chills, constipation, diarrhea, chest pain, chest pressure, shortness of breath, visual disturbances, presyncope or syncope. During her examination she denies any further complaints of left leg pain at this time. Due to her complaints of left leg pain and numbness, she presented to the emergency department here at [facility] for further evaluation and treatment recommendations. A twelve-lead EKG was completed which showed normal sinus rhythm heart rate [address] scan of her brain was completed which showed mild patchy burden of chronic small vessel ischemic disease and no acute intracranial abnormality was seen. For further evaluation a CT angio head and neck were completed which demonstrated a large Mg type a aortic dissection, the great vessels of the aortic arch to be supplied by the true lumen and remain patent, mild narrowing at the origin of the brachiocephalic artery due to mass effect from the large false lumen. 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 Subsequently due to the findings of the Mg type a aortic dissection a CT angio thoracic/abdomen and pelvis aorta was completed and demonstrated a large Mg type a aortic dissection which starts just above the right coronary cusp and extends down the aortic bifurcation, left common iliac artery is supplied entirely by the false lumen and is nonopacified. It also demonstrated the false lumen to show some enhancement in the chest but loses enhancement within the abdomen, and showed dynamic collapsibility of the true lumen. It showed henrandez caked anteriorly at the level of the celiac axis and becomes slitlike at the aortic bifurcation prior to supplying the right common iliac artery. The report also showed great vessels from the arch are supplied by the true lumen as is the celiac axis, SMA, SUSANNAH and right renal artery. The left renal artery and left common iliac artery supplied by the false lumen, and a ascending aortic caliber is 4.2 cm. Due to the findings on the above- mentioned studies a consult was placed to Dr. Jac Lacey from cardiothoracic surgery for further evaluation and treatment recommendations. Review of Systems A 14 point review of systems was completed and was negative except as mentioned in the HPI. Past Medical History Past Medical History: Coronary Artery Disease (CAD), Hyperlipidemia, Hypertension, Renal Disease, Thyroid Disorder Additional Past Medical History / Comment(s): HAD CHANGES IN STRESS TEST SINCE LAST Year. Mitral regurgitation. some chest heviness History of Any Multi-Drug Resistant Organisms: None Reported Past Surgical History: Breast Surgery, Heart Catheterization With Stent, Hysterectomy Additional Past Surgical History / Comment(s): HOLE IN RT EYE REPAIRED 3 YRS AGO AT [place]. BREAST REDUCTION 2009 Past Anesthesia/Blood Transfusion Reactions: No Reported Reaction, Postoperative Nausea & Vomiting (PONV) Past Psychological History: No Psychological Hx Reported Smoking Status: Former smoker Past Alcohol Use History: None Reported Past Drug Use History: None Reported - Past Family History Mother Family Medical History: No Reported History Medications and Allergies Home Medications Medication Instructions Recorded Confirmed Type Aspirin EC [Ecotrin Low Dose] 81 mg PO DAILY 04/04/23 05/03/23 History Ergocalciferol [Vitamin D2 (1250 1,250 mcg PO SA 04/04/23 05/03/23 History Mcg = 77888 Iu)] Levothyroxine Sodium [Synthroid] 100 mcg PO DAILY 04/04/23 05/03/23 History Atorvastatin [Lipitor] 80 mg PO DAILY #0 tab 04/10/23 05/03/23 Rx Metoprolol Tartrate [Lopressor] 25 mg PO BID #0 tab 04/10/23 05/03/23 Rx Furosemide [Lasix] 20 mg PO DAILY 04/15/23 05/03/23 History Losartan-Hctz 50-12.5 mg [Hyzaar 1 tab PO DAILY 04/15/23 05/03/23 History 50-12.5] Fexofenadine/Pseudoephedrine 1 tab PO DAILY PRN 04/23/23 05/03/23 History [Naheed-D 24 Hour Tablet] Nitroglycerin Sl Tabs [Nitrostat] 0.4 mg SUBLINGUAL Q5M PRN 04/23/23 05/03/23 History Ondansetron Odt [Zofran Odt] 4 mg PO Q8HR PRN #10 tab 04/23/23 05/03/23 Rx Ticagrelor [Brilinta] 90 mg PO BID 04/23/23 05/03/23 History Allergies Allergy/AdvReac Type Severity Reaction Status Date / Time No Known Allergies Allergy Verified 05/03/23 10:08 Surgical - Exam Vital Signs Temp Pulse Resp BP Pulse Ox 97.6 F 68 20 58/36 96 05/03/23 08:13 05/03/23 08:13 05/03/23 08:13 05/03/23 08:13 05/03/23 08:13 - General well developed, well nourished, no distress, no pain, chronically ill - Eyes PERRL, normal ocular movement, no pale, no icteric - ENT normal pinna, normal nares, normal mucosa, no hearing loss, no congestion - Neck Neck is supple, no lymphadenopathy. no masses, no bruits, trachea midline, no venous distension - Respiratory Lung sounds essentially clear throughout, no wheezes, rhonchi or crackles. Respirations are symmetrical and nonlabored. - Cardiovascular Regular rhythm and rate. S1 and S2 present, negative for S3, or gallop. Soft systolic murmur. - Abdomen Abdomen soft, nontender nondistended. Active bowel sounds present all 4 abdominal quadrants. No guarding or rigidity. No organomegaly appreciated. - Genitourinary Deferred - Rectum Deferred - Integumentary Skin is warm and dry. No clubbing or cyanosis is present. Left foot cool to touch. no rash, no growths, no abnormal pigmentation - Neurologic Speech is normal. Cranial nerves II through XII intact. - Musculoskeletal Some limited movement to her left lower extremity, bilateral upper extremities equal strength bilateral. - Psychiatric oriented to time, oriented to person, oriented to place, speech is normal, memory intact Results - Labs 05/03/23 11:52 05/03/23 08:34 Abnormal Lab Results - Last 24 Hours (Table) 05/03/23 05/03/23 Range/Units 08:34 08:34 WBC 14.7 H (3.8-10.6) k/uL RBC 3.51 L (3.80-5.40) m/uL Hgb 10.8 L D (11.4-16.0) gm/dL Hct 31.4 L (34.0-46.0) % Neutrophils # 13.0 H (1.3-7.7) k/uL Lymphocytes # 0.8 L (1.0-4.8) k/uL Sodium 132 L (137-145) mmol/L BUN 33 H (7-17) mg/dL Creatinine 2.57 H (0.52-1.04) mg/dL Glucose 115 H (74-99) mg/dL Calcium 8.0 L (8.4-10.2) mg/dL Total Protein 5.3 L (6.3-8.2) g/dL Albumin 2.8 L (3.5-5.0) g/dL Diabetes panel 05/03/23 Range/Units 08:34 Sodium 132 L (137-145) mmol/L Potassium 3.5 (3.5-5.1) mmol/L Chloride 100 (98-107) mmol/L Carbon Dioxide 26 (22-30) mmol/L BUN 33 H (7-17) mg/dL Creatinine 2.57 H (0.52-1.04) mg/dL Glucose 115 H (74-99) mg/dL Calcium 8.0 L (8.4-10.2) mg/dL AST 27 (14-36) U/L ALT 25 (4-34) U/L Alkaline Phosphatase 79 (38-126) U/L Total Protein 5.3 L (6.3-8.2) g/dL Albumin 2.8 L (3.5-5.0) g/dL Calcium panel 05/03/23 Range/Units 08:34 Calcium 8.0 L (8.4-10.2) mg/dL Albumin 2.8 L (3.5-5.0) g/dL Pituitary panel 05/03/23 Range/Units 08:34 Sodium 132 L (137-145) mmol/L Potassium 3.5 (3.5-5.1) mmol/L Chloride 100 (98-107) mmol/L Carbon Dioxide 26 (22-30) mmol/L BUN 33 H (7-17) mg/dL Creatinine 2.57 H (0.52-1.04) mg/dL Glucose 115 H (74-99) mg/dL Calcium 8.0 L (8.4-10.2) mg/dL Adrenal panel 05/03/23 Range/Units 08:34 Sodium 132 L (137-145) mmol/L Potassium 3.5 (3.5-5.1) mmol/L Chloride 100 (98-107) mmol/L Carbon Dioxide 26 (22-30) mmol/L BUN 33 H (7-17) mg/dL Creatinine 2.57 H (0.52-1.04) mg/dL Glucose 115 H (74-99) mg/dL Calcium 8.0 L (8.4-10.2) mg/dL Total Bilirubin 0.6 (0.2-1.3) mg/dL AST 27 (14-36) U/L ALT 25 (4-34) U/L Alkaline Phosphatase 79 (38-126) U/L Total Protein 5.3 L (6.3-8.2) g/dL Albumin 2.8 L (3.5-5.0) g/dL - Imaging CT scan - chest: report reviewed (Reviewed by Dr. Lacey.), image reviewed Assessment and Plan Assessment: [place] type A aortic dissection Triple-vessel coronary artery disease, recent PCI History of mild chordal ATIF, moderate to severe posteriorly directed eccentric mitral valve regurgitation History of moderate to severe concentric left ventricular hypertrophy Hypertension Hyperlipidemia Hypertrophic obstructive cardiomyopathy Hypothyroid Previous tobacco dependence Plan: The patient was seen and examined in conjunction with Dr. Lacey from cardiothoracic surgery in the emergency department. The patient's sons were present at her bedside. The findings on the CT scans were discussed with the patient and her sons, treatment options were discussed in detail by Dr. Lacey and recommendations for emergent ascending aortic repair, total arch frozen elephant trunk was discussed with the patient. Risks and benefits of the surgery were discussed and knowing and understanding the risk the patient wished to proceed with the surgical option. The patient understands she is a high risk surgical candidate. Medical management other comorbidities per primary care service. The patient is scheduled for emergent ascending aortic repair, total arch frozen elephant trunk. More recommendations to follow based on miguel marquez's clinical course. Thank you for this consult and we look forward to working with you in the care of this patient. I have personally seen and examined the patient, performed the documentation and the assessment and plan as written. Number of minutes spent on the visit: 30. MILY Burton Attending Addendum: Pt seen and evaluated with VOICER above. Agree with his assessment and plan. This patient is a 72 year-old F with a recent history of CAD s/p PCI on Brillinta who presented with left leg pain and weakness. CTA reveals a Type A dissection originating near the STJ and propagating down into her iliac arteries. Given these findings, and the fact that no other facility has accepted her for transfer, we will proceed with aortic repair under circulatory arrest. The risk of morbidity which includes bleeding from the brillinta and mortality which exceeds 50% was discussed with the patient and both of her sons. They are in agreement to proceed. I spent 50 minutes reviewing the data and coordinating her care. Time with Patient: Greater than 30
[2023-05-03 12:06] LABS: Basophils # (A) 0.1 k/uL (0-0.2); Basophils % (A) 1 %; Eosinophils # (A) 0.1 k/uL (0-0.7); Eosinophils % (A) 1 %; HGB 9.9 gm/dL (11.4-16.0); Lymphocytes # (A) 0.8 k/uL (1.0-4.8); Lymphocytes % (A) 5 %; MCH 30.5 pg (25.0-35.0); MCHC 34.2 g/dL (31.0-37.0); Mean Platelet Volume 8.1; Monocytes # (A) 0.4 k/uL (0-1.0); Monocytes % (A) 3 %; Neutrophils # (A) 15.3 k/uL (1.3-7.7); Neutrophils % (A) 91 %; Platelet Count 228 k/uL (150-450); RBC 3.26 m/uL (3.80-5.40); RDW 13.6 % (11.5-15.5); WBC 16.8 k/uL (3.8-10.6)
[2023-05-03] MEDS ORDERED: VECURONIUM 10 MG VIAL IV ONE (12:09)
[2023-05-03] MEDS ORDERED: PHENYLEPHRINE 10 MG/ML VIAL ONE (12:09)
[2023-05-03] MEDS ORDERED: HYDROCORTISONE SUCCINATE 100 MG/2 ML VIAL ONE (12:09)
[2023-05-03] MEDS ORDERED: SODIUM BICARB 8.4% 50 ML SYR (1 MEQ/ML) ONE (12:09)
[2023-05-03] MEDS ORDERED: CALCIUM CHLORIDE 100 MG/ML 10 ML SYRINGE ONE (12:09)
[2023-05-03] MEDS ORDERED: HEPARIN SODIUM,PORCINE 10,000 UNIT/ML 1 ML VIAL ONE (12:09)
[2023-05-03] MEDS ORDERED: HEPARIN SODIUM,PORCINE 5,000 UNIT/ML 1 ML VIAL ONE (12:09)
[2023-05-03] MEDS ORDERED: fentaNYL (PF) 50 MCG/ML 50 ML VIAL ONE (12:09)
[2023-05-03] MEDS ORDERED: MIDAZOLAM HCL 10 MG/10 ML VIAL ONE (12:09)
[2023-05-03] MEDS ORDERED: LIDOCAINE 2% SYG (PF) 100 MG/5 ML ONE (12:09)
[2023-05-03] MEDS ORDERED: TRANEXAMIC 1,000 MG/100ML-NACL PREMIX BAG ONE (12:09)
[2023-05-03] MEDS ORDERED: SUCCINYLCHOLINE CHLORIDE 200 MG/10 ML VIAL IV ONE (12:09)
[2023-05-03] MEDS ORDERED: NOREPINEPHRINE 1 MG/ML 4 ML VIAL IV ONE (12:09)
[2023-05-03] MEDS ORDERED: INSULIN REGULAR 100 UNIT/ML VIAL (IV) ONE (12:09)
[2023-05-03 12:27] LABS: Magnesium 1.8 mg/dL (1.6-2.3)
[2023-05-03 12:47] LABS: ABG Base Excess -1.1 mmol/L; ABG Glucose Whole Blood 109 mg/dL (75-99); ABG HCO3 24 mmol/L (21-25); ABG Hematocrit 29 % (34.0-46.0); ABG Ionized Calcium 4.5 mg/dL (4.5-5.3); ABG Lactic Acid Whole Blood 0.8 mmol/L (0.5-1.6); ABG Oxygen Saturation 99.1 % (94-97); ABG PCO2 41 mmHg (35-45); ABG PH 7.38 (7.35-7.45); ABG PO2 332 mmHg (83-108); ABG Potassium Whole Blood 4.4 mmol/L (3.4-4.5); ABG Sodium Whole Blood 134 mmol/L (135-146)
[2023-05-03] MEDS: HEPARIN SODIUM,PORCINE (1 ML) 5,000 UNIT in SODIUM CHLORIDE 0.9% 500 ML 500 ML IV ONE (13:23)
[2023-05-03 13:37] LABS: T4, Free (Free Thyroxine) 1.51 ng/dL (0.78-2.19)
[2023-05-03 13:53] LABS: ABG Glucose Whole Blood 108 mg/dL (75-99); ABG HCO3 23 mmol/L (21-25); ABG Hematocrit 25 % (34.0-46.0); ABG Ionized Calcium 4.2 mg/dL (4.5-5.3); ABG Lactic Acid Whole Blood 0.6 mmol/L (0.5-1.6); ABG Oxygen Saturation 98.5 % (94-97); ABG PCO2 38 mmHg (35-45); ABG PH 7.39 (7.35-7.45); ABG PO2 171 mmHg (83-108); ABG Potassium Whole Blood 3.8 mmol/L (3.4-4.5); ABG Sodium Whole Blood 134 mmol/L (135-146)
[2023-05-03] MEDS: ceFAZolin 1,000 MG in SODIUM CHLORIDE 0.9% IRRIGATIO 1,000 ML IRRIGATION ONE (13:55)
[2023-05-03 14:41] LABS: ABG Base Excess -2.9 mmol/L; ABG Glucose Whole Blood 127 mg/dL (75-99); ABG HCO3 23 mmol/L (21-25); ABG Ionized Calcium 3.8 mg/dL (4.5-5.3); ABG Lactic Acid Whole Blood 0.9 mmol/L (0.5-1.6); ABG Oxygen Saturation >99.4 % (94-97); ABG PCO2 42 mmHg (35-45); ABG PH 7.34 (7.35-7.45); ABG Potassium Whole Blood 5.4 mmol/L (3.4-4.5); ABG Sodium Whole Blood 134 mmol/L (135-146)
[2023-05-03 14:59] LABS: ABG Base Excess -3.3 mmol/L; ABG Glucose Whole Blood 131 mg/dL (75-99); ABG HCO3 23 mmol/L (21-25); ABG Ionized Calcium 3.9 mg/dL (4.5-5.3); ABG Lactic Acid Whole Blood 0.9 mmol/L (0.5-1.6); ABG Oxygen Saturation 99.2 % (94-97); ABG PCO2 45 mmHg (35-45); ABG PH 7.31 (7.35-7.45); ABG PO2 364 mmHg (83-108); ABG Potassium Whole Blood 4.4 mmol/L (3.4-4.5); ABG Sodium Whole Blood 134 mmol/L (135-146)
[2023-05-03 16:24] LABS: Hepatitis A Antibody IgM Nonreactive; Hepatitis B Core IgM Nonreactive; Hepatitis B Surface Antigen Nonreactive; Hepatitis C IgG Antibody Nonreactive
--- NOTE | 2023-05-03 17:19 | CA ---
Transthoracic Echo Report Name: Nicolle Richards Age: 72 Gender: F : 1950 Exam Date: 05/03/2023 10:56 Exam Location: [facility] Ht (in): 63 Wt (lb): 115 Ordering Physician: Vik Valle DO Attending/Referring Phys: Canary Breeder Cris Simpson RCS Procedure CPT: Indications: disection Cardiac Hx: Technical Quality: Poor Contrast 1: Total Dose (mL): Contrast 2: Total Dose (mL): MEASUREMENTS (Male / Female) Normal Values 2D ECHO LV Diastolic Diameter PLAX 4.2 cm 4.2 - 5.9 / 3.9 - 5.3 cm LV Systolic Diameter PLAX 2.6 cm IVS Diastolic Thickness 1.1 cm 0.6 - 1.0 / 0.6 - 0.9 cm LVPW Diastolic Thickness 1.0 cm 0.6 - 1.0 / 0.6 - 0.9 cm LV Relative Wall Thickness 0.5 RV Internal Dim ED PLAX 3.1 cm LVOT Diameter 2.1 cm LA Volume 81.0 cm??? 18 - 58 / 22 - 52 cm??? LA Volume Index 53.3 cm???/m??? 16 - 28 cm???/m??? DOPPLER AV Peak Velocity 206.4 cm/s AV Peak Gradient 17.0 mmHg AV Mean Velocity 146.7 cm/s AV Mean Gradient 9.5 mmHg AV Velocity Time Integral 50.2 cm LVOT Peak Velocity 162.7 cm/s LVOT Peak Gradient 10.6 mmHg LVOT Velocity Time Integral 39.3 cm LVOT Stroke Volume 135.1 cm??? LVOT Stroke Volume Index 88.4 ml/m??? LVOT Cardiac Index 4973.6 cm???/min???m??? AV Area Cont Eq vti 2.7 cm??? AV Area Cont Eq pk 2.7 cm??? MV Peak Velocity 165.5 cm/s MV Peak Gradient 11.0 mmHg MV Mean Velocity 94.4 cm/s MV Mean Gradient 4.1 mmHg MV Velocity Time Integral 58.8 cm MV Area PHT 2.4 cm??? Mitral E Point Velocity 103.9 cm/s Mitral A Point Velocity 133.9 cm/s Mitral E to A Ratio 0.8 MV Deceleration Time 318.3 ms TR Peak Velocity 238.8 cm/s TR Peak Gradient 22.8 mmHg Right Ventricular Systolic Press 27.8 mmHg FINDINGS Left Ventricle Left ventricular ejection fraction is estimated at 60-65 %. Mildly increased septal wall thickness. Mildly increased posterior wall thickness. Left ventricular cavity size normal. No obvious regional wall motion abnormalities. Right Ventricle Normal right ventricular size and function. Right ventricular systolic pressure within normal limits. Right Atrium Normal right atrial size by visual. Left Atrium Severely increased left atrial volume. Mildly increased left atrial area. Mitral Valve Moderate thickening/calcification of the anterior mitral valve leaflet. Severe thickening/calcification of the posterior mitral valve leaflet.lnyn-[id number] mitral stenosis. Zade-kx-ppgwoasd mitral regurgitation. Systolic anterior motion of the mitral valve. Aortic Valve Diffuse thickening of the aortic valve cusps with reduced excursion. No aortic stenosis. No aortic regurgitation. Tricuspid Valve Structurally normal tricuspid valve. No tricuspid stenosis. Mild tricuspid regurgitation. Pulmonic Valve Pulmonic valve not well visualized. No pulmonic stenosis. No pulmonic regurgitation. Pericardium No pericardial effusion. Aorta Normal size aortic root and proximal ascending aorta. CONCLUSIONS Normal LV systolic function Severe mitral annular calcification with mild to moderate mitral stenosis and mild to moderate mitral regurgitation Mild tricuspid regurgitation Previewed by: Dr. James Mckinnon MD (Electronically Signed) Final Date: 03 May 2023 17:18
--- NOTE | 2023-05-03 17:32 | P.ANPRN ---
Procedure Note - Anesthesia - CHAPINCITO Intraop Pre Bypass CHAPINCITO Intraop - Anesthesia Indication: Aortic Dissection Date of Procedure: 05/03/23 Pre-operative Diagnosis: Aortic Dissection Post-operative Diagnosis: same Surgeon: Jac Lacey Left Ventricle: lvh - mod, no rwma Ejection Fraction: Normal Regional Wall Motion Abnormalities: None Left Ventricle Hypertrophy: Yes (mild-mod) Right Ventricle: wnl Anatomy: Trileaflet Aortic Stenosis: None Aortic Regurgitation: None Other Findings: AV transvalvular gradient mean 14mmhg Mitral Valve: restricted p2 leading to posteriorly directed MR Mitral Stenosis: None Mitral Regurgitation: Mild Tricuspid Stenosis: None Tricuspid Regurgitation: None Pulmonic Stenosis: None Pulmonic Regurgitation: None R. Atrial Dilation: No R. Atrial PFO: No L. Atrial Dilation: No Aortic Dissection: Yes (true and false lumen visualized from aortic root to iliacs) Aortic Calcification: Moderate Plural Effusion: None
[2023-05-03] MEDS ORDERED: VASOPRESSIN 60 UNIT in SODIUM CHLORIDE 0.9% 150 ML IV SCH (18:00)
[2023-05-03] MEDS ORDERED: HUMAN PROTHROMBIN COMPLX 500 UNIT/16 ML VIAL IV ONE (18:52)
[2023-05-03] MEDS ORDERED: HUMAN PROTHROMBIN COMPLX IV ONE (19:00)
[2023-05-03] MEDS ORDERED: SODIUM CHLORIDE 0.9% 1,000 ML with SODIUM BICARB (1 MEQ/ML) 150 ML IV ONE (19:00)
[2023-05-03] MEDS: GELATIN SPONGE,ABSORB (LARGE) 1 EACH SPONGE TOPICAL ONE (19:21)
[2023-05-03] MEDS: THROMBIN (BOVINE) 5,000 UNIT VIAL TOPICAL ONE (19:22)
[2023-05-03 20:01] LABS: ABG Hematocrit 17 % (34.0-46.0); ABG PO2 >420 mmHg (83-108)
[2023-05-03 20:03] LABS: ABG Hematocrit 19 % (34.0-46.0)
--- NOTE | 2023-05-03 20:23 | P.ANPRN ---
Procedure Note - Anesthesia - CHAPINCITO Intraop Post Bypass CHAPINCITO Intraop Post Bypass Procedure Performed: Ascending Aorta Repair Left Ventricle: Hypovolemic, Regional Wall Motion Abnormalities: None R. Ventricle Function: Normal Aortic Valve: Unchanged Mitral Valve: Unchanged Tricuspid: Unchanged Pulmonic: Unchanged Aortic Dissection: No
--- NOTE | 2023-05-03 20:24 | P.ANPRN ---
Procedure Note - Anesthesia - Invasive Line Right Central Line Time Out Performed: Yes (1214) Date of Procedure: 05/03/23 Time of Procedure: 12:15 Location of Patient: Phase I Preparation: Sterile Prep, Sterile Dressing Central Line Location: Internal Jugular (right) Ultrasound Used: No Purpose - Visualization and Identification of Vasculature: No Needle Guage: 18g Image Stored and Saved: No Narrative: Invasive line placement per sterile protocol utilized. charted for bowles per conversation
--- NOTE | 2023-05-03 20:24 | P.ANPRN ---
Procedure Note - Anesthesia - Invasive Line Right [place] Time Out Performed: Yes (1214) Date of Procedure: 05/03/23 Time of Procedure: 12:31 Location of Patient: Phase I Preparation: Sterile Prep, Sterile Dressing [place] Line Location: Internal Jugular Ultrasound Used: No Purpose - Visualization and Identification of Vasculature: No Image Stored and Saved: No Narrative: Invasive line placement per sterile protocol utilized. floated in one attempt to PA. No wedge.
--- NOTE | 2023-05-04 10:42 | P.OP ---
Date of Procedure: 05/03/23 Preoperative Diagnosis: Acute Type A Aortic Dissection Acute limb ischemia - left leg CAD s/p recent PCI on Brillinta Tobacco use with new LLL mass HTN HLD Hypothy Postoperative Diagnosis: Same Procedure(s) Performed: 1. Aortic Repair Using the Branched Stented Anastomosis Frozen Elephant Trunk Repair (B-SAFER) under Circulatory Arrest Using a 34 x 15mm [place] C-TAG antegrade TEVAR and 8 x 50 Viabhan stent into left subclavian artery 2. BIS cerebral montoring and antegrade cerebral perfusion during circulatory arrest. 3. Cabrol patch repair of ascending aortic graft 4. Trans-esophageal echo Implants: 34 x 15mm [place] C-TAG 8 x 50 Viabhan stent into LSCA Anesthesia: MICHAEL Surgeon: Jac Lacey Woven Blind Loom Tender #1: Doyle Willett Woven Blind Loom Tender #2: Jimi Amor Estimated Blood Loss (ml): 4,000 Pathology: other (ASCENDING AORTA) Condition: Disposition: other ( in OR at 2002) Indications for Procedure: This patient is a 72 year-old female with the history of CAD s/p PCI to the LAD and Cx coronary arteries two weeks prior who presented with acute onset of left leg pain and weakness. Of note, she was on brillinta. Imaging revealed an Acute Type A dissection originating in the ascending aorta and propogating into bilateral iliac arteries. An attempt was made to transfer the patient to a higher level of care but no other facility was willing to accept her. In light of this, the decision was made to proceed with aortic repair. Her risk of morbidity including excessive bleeding from the Brillinta and mortality which exceed 50% was discussed with the patient and both of her sons. They were in agreement to proceed and do whatever it takes to "save the patients life." Operative Findings: Primary entry tear in ascending aorta near STJ. Extremely thin and denuded aorta with dissection extending through the arch. Description of Procedure: The patient was brought to the pre-operative suite and underwent left radial arterial line, central line and swan stiven placement by the anesthesia team. She was brought back to the operating room and placed in the supine position. She was intubated and underwent general anesthesia. She was prepped and draped from the chin to the ankles and antibiotics were given. I made a midline incision and carried it down to the sternum using electrocautery in preparation for sternotomy. At this point, an incision was made in the right delto-pectoral groove and carried down through the tissues. The pectoralis major fibers were split and the delto-pectoral fascia was incised. The axillary artery was encircled x 2 taking care not to injure the brachial plexus. 8000 units of heparin was given and the axillary artery was clamped and arteriotomy was made. 10mm gelweave graft was sewn onto the artery, which was then de-aired. The patient was fully heparinized and graft was connected to arterial line. Median sternotomy was performed and hemostasis was achieved using bone wax. The pericardium was incised in a reverse T fashion and pericardial cradle was created. The right atrial appendage was cannulated using a pledgeted 3-0 prolene suture. Retrograde catheter was placed in the coronary sinus indirectly through the right atrium using prolene purse string. Cardiopulmonary bypass was initiated once ACT > 480 and the patient was cooled down to 26 degrees celcius. The ascending aorta which was clearly dissected and of very poor quality was dissected free. Once the patient fibrillated the ascending aorta was opened and 1L of retrograde cardioplegia was given in addition to 250cc of antegrade cardioplegia down each coronary ostia with good arrest of the heart. Blood based cardioplegia was re-dosed every 15 minutes. The ascending aorta was resected and sent to pathology. The aortic root and valve appeared normal. Once target temperature was achieved the patient was briefly placed on true circulatory arrest and the distal ascending aorta was beveled and retrograde catheter was placed into the left common carotid artery for antegrade cerebral perfusion. At this point antegrade cerebral perfusion was initiated via the inominate and left common carotid artery flowing approximately 10-12cc/kg/min. The 34 x 15mm [place] c-tag device was then deployed in zone 2 and fenetrated at the base of the left subclavian artery. A 8x50mm viabhan stent was deployed in the left subclavian artery. The TEVAR was then circumferentially sewen to prevent type 1 endoleak using a 3-0 prolene. The distal anastomosis of the aniket- arch was sewn using a running 5-0 prolene and carlos-guard strip. The aorta was de-aired and the clamp was placed back on the graft. Total circulatory arrest time was 55 minutes. Cardiopulmonary bypass was re-initiated and the patient was re-warmed to 35.5 degrees celcius. In the meantime, the proximal aortic anastomosis was completed using a running 5-0 prolene and periguard strip. A pledgeted 4-0 prolene was placed in the graft and root vent re-inserted. The cross clamp was removed and the heart regained sinus rhythm immediately. The patient was weaned off cardiopulmonary bypass and protamine was given for heparin reversal. Multiple blood products were given at this time including pRBC, FFP, Cryo and k-centra. Despite this the patient continued to diffusely ooze despite packing and pressure. At this point, the patient was hypotensive and anesthesia team had difficulty keeping up with volume resuscitation. I then quickly used a large bovine pericardial patch to sew on a cabrol patch over the aorta in an effort to control the bleeding. Despite this, she was requiring maximal support and merely had a blood pressure of 25mm Hg. Given these circumstances the decision was made to stop resuscitation and the patient shortly thereafter in the operating room at 2002.
--- NOTE | 2023-05-14 12:22 | CDI ---
Documentation Clarification Form Date: 05/14/2023 From: Meghna Arambula Admit Date: 05/03/2023 10:54:00 AM Patient Name: Nicolle Richards Visit Number: [id number] Discharge Date: 05/03/2023 08:03:00 PM ATTENTION: The Clinical Documentation Specialists (CDI) and [facility] Coding Staff appreciate your assistance in clarifying documentation. Please respond to the clarification below the line at the bottom and electronically sign. The CDI & [facility] Coding staff will review the response and follow-up if needed. Please note: Queries are made part of the Legal Health Record. If you have any questions, please contact the author of this message via ITS. Dr. Jac Lacey, Your patient has a hemoglobin/hematocrit level of 10.8/31.4 & 9.9/29 on 05/02. Please clarify if there is an additional diagnosis and/or clinical significance related to these lab values. History/Risk Factors: CAD w recent PCI, HTN, HLD MVI, hypertrophic obstructive cardiomyopathy, hypothyroid, hx of smoking Clinical indicators: [place] type Aaortic dissection Treatment: K-Centra x 3, red blood cells x 8, fresh frozen plasma x 8, platelets x 2, pooled cryoprecipitate x 2 Is there an additional diagnosis and/or clinical significance related to the above lab result/information: [ x ] Acute blood loss anemia [ ] No additional diagnosis/Not clinically significant [ ] Unable to determine [ ] Other, please specify MTDD
--- NOTE | 2023-05-14 12:28 | CDI ---
Documentation Clarification Form Date: 05/14/23 From: Meghna Arambula Admit Date: 05/03/2023 10:54:00 AM Patient Name: Nicolle Richards Visit Number: [id number] Discharge Date: 05/03/2023 08:03:00 PM ATTENTION: The Clinical Documentation Specialists (CDI) and [facility] Coding Staff appreciate your assistance in clarifying documentation. Please respond to the clarification below the line at the bottom and electronically sign. The CDI & [facility] Coding staff will review the response and follow-up if needed. Please note: Queries are made part of the Legal Health Record. If you have any questions, please contact the author of this message via ITS. Dr. Jac Lacey, Your patient has an abnormal lab value: [insert lab value, date]. Please clarify if there is an additional diagnosis and/or clinical significance related to this value. History/Risk Factors: CAD w recent PCI, HTN, HLD MVI, hypertrophic obstructive cardiomyopathy, hypothyroid, hx of smoking Clinical indicators: Mg type A aortic dissection. Creatinine elevated at 2.57 on 05/02. No additional Cr levels available Treatment: IV fluids Is there an additional diagnosis and/or clinical significance related to the above lab result/information? [ x] Acute Kidney Injury, unspecified [ ] No additional diagnosis/Not clinically significant [ ] Other, please specify [ ] Unable to determine MTDD
--- NOTE | 2023-05-20 14:52 | CDI ---
Documentation Clarification Form Date: 05/20/2023 02:37:47 PM From: Iris Bell RN, CCDS Email: [email or web address] Admit Date: 05/03/2023 10:54:00 AM Patient Name: Nicolle Richards Visit Number: [id number] Discharge Date: 05/03/2023 08:03:00 PM ATTENTION: The Clinical Documentation Specialists (CDI) and [facility] Coding Staff appreciate your assistance in clarifying documentation. Please respond to the clarification below the line at the bottom and electronically sign. The CDI & [facility] Coding staff will review the response and follow-up if needed. Please note: Queries are made part of the Legal Health Record. If you have any questions, please contact the author of this message via ITS. Dr. Jac Lacey During the procedure, the patient continued to diffusely ooze despite packing and pressure and was hypotensive. Additional clarification is requested. Patient history/risk factors: HTN, HLD, CAD. Presented with left leg numbness and weakness. Found to have acute Type A Aortic Dissection. S/P Aortic repair. Clinical Indicators: 3 Procedure note: "Multiple blood products were given at this time including pRBC, FFP, Cryo and k-Centra. Despite this the patient continued to diffusely ooze despite packing and pressure. At this point, the patient was hypotensive and anesthesia team had difficulty keeping up with volume resuscitation. I then quickly used a large bovine pericardial patch to sew on a cabrol patch over the aorta in an effort to control the bleeding. Despite this, she was requiring maximal support and merely had a blood pressure of 25mm Hg." Treatment: multiple blood products, packing and pressure, see above Please clarify if there is an additional diagnosis: [x ] Hemorrhagic Shock [ ] Hypovolemic Shock [ ] Cardiogenic Shock [ ] Other, please specify [ ] Unable to determine MTDD
== END 2023-05-03 20:03 | disposition expired | DRG 220 ==
LOC: EC 08:10 → 2SICU 10:54
PROVIDERS: ADMIT Thoracic Surgery (Cardiothoracic Vascular Surgery); ATTEND Thoracic Surgery (Cardiothoracic Vascular Surgery)
PROC: 30283B1 Transfusion of Nonautologous 4-Factor Prothrombin Complex Concentrate into Vein, Percutaneous Approach (ICD-10-PCS; 2023-05-03)
PROC: 30233K1 Transfusion of Nonautologous Frozen Plasma into Peripheral Vein, Percutaneous Approach (ICD-10-PCS; 2023-05-03)
PROC: 30233M1 Transfusion of Nonautologous Plasma Cryoprecipitate into Peripheral Vein, Percutaneous Approach (ICD-10-PCS; 2023-05-03)
PROC: 30233N1 Transfusion of Nonautologous Red Blood Cells into Peripheral Vein, Percutaneous Approach (ICD-10-PCS; 2023-05-03)
PROC: 30233R1 Transfusion of Nonautologous Platelets into Peripheral Vein, Percutaneous Approach (ICD-10-PCS; 2023-05-03)
PROC: 03H Upper Arteries, Insertion (ICD-10-PCS; principal; 2023-05-03 11:00)
PROC: 02VW0DZ Restriction of Thoracic Aorta, Descending with Intraluminal Device, Open Approach (ICD-10-PCS; principal; 2023-05-03 11:00)
PROC: B24BZZ4 Ultrasonography of Heart with Aorta, Transesophageal (ICD-10-PCS; principal; 2023-05-03 11:00)
PROC: 5A1221Z Performance of Cardiac Output, Continuous (ICD-10-PCS; principal; 2023-05-03 11:00)
PROC: 02RX0JZ Replacement of Thoracic Aorta, Ascending/Arch with Synthetic Substitute, Open Approach (ICD-10-PCS; principal; 2023-05-03 11:00)
DX: I71.010 Dissection of ascending aorta (principal); D62 Acute posthemorrhagic anemia; N17.9 Acute kidney failure, unspecified; I42.1 Obstructive hypertrophic cardiomyopathy; E87.1 Hypo-osmolality and hyponatremia; I11.9 Hypertensive heart disease without heart failure; I70.222 Atherosclerosis of native arteries of extremities with rest pain, left leg; I34.0 Nonrheumatic mitral (valve) insufficiency; E03.9 Hypothyroidism, unspecified; Z28.310 Unvaccinated for COVID-19; E78.5 Hyperlipidemia, unspecified; N28.9 Disorder of kidney and ureter, unspecified; R26.2 Difficulty in walking, not elsewhere classified; I25.10 Atherosclerotic heart disease of native coronary artery without angina pectoris; R91.8 Other nonspecific abnormal finding of lung field; R57.8 Other shock; Z79.02 Long term (current) use of antithrombotics/antiplatelets; Z79.82 Long term (current) use of aspirin; Z79.890 Hormone replacement therapy; Z79.899 Other long term (current) drug therapy; Z95.5 Presence of coronary angioplasty implant and graft; Z87.891 Personal history of nicotine dependence
CPT/HCPCS: 36415; 36430; 70450; 70496; 70498; 71046; 71275; 74174; 80053; 80061; 80074; 82550; 82805; 83036; 83605; 83735; 84439; 84443; 85025; 85520; 85610; 85730; 86850; 86891; 86900; 86901; 86920; 88305; 93005; 93306; 96374; 96375; 99291